=== PATIENT | female | born 1995 | race African-American/Black ===

== ENCOUNTER 2024-08-14 13:50 | Emergency (ER) | payer MEDICAID, SELFPAY ==
[2024-08-14 13:52] VITALS: BP 120/74; PULSE 92; RESP 18; TEMP 36.1; O2SAT 100
--- NOTE | 2024-08-14 14:11 | US_ITS ---
PROCEDURE: TRANSVAGINAL W/PREG US 08/14/2024 REASON FOR EXAM: , VAGINAL BLEED, patient currently taking oral abortive medication for , patient was approximately 9 weeks at time of medication induction. COMPARISON: None. TECHNIQUE: Transvaginal and transabdominal pelvic ultrasound. Color and spectral doppler analysis of the ovaries. FINDINGS: Measurements: Uterus: 13.6 x 5.9 x 6.1 cm Endometrial Thickness: 1.5 cm Right Ovary: Nonvisualized. Left Ovary: 3.1 x 2.4 x 2.2 cm Uterus: Anteverted. No visualized gestational sac or yolk sac. The cervical os appears closed. Endometrium: Heterogeneous, compatible with patient history. Right ovary: Nonvisualized. Left ovary: Normal size and echotexture. Other adnexal findings: None. No adnexal mass. Cul-de-sac: No free intraperitoneal fluid identified. No tenderness. DOPPLER: Color Doppler: Normal color flow doppler signal at both ovaries. Spectral Doppler: Normal arterial inflow and venous outflow signal at both ovaries. US/Transvaginal w/Preg US IMPRESSION: 1. Normal pelvic ultrasound without intrauterine gestational sac or yolk sac to suggest viable . 2. Mildly heterogeneous endometrium, compatible with reported history of medica l . Reading Location: [id number]
[2024-08-14 14:26] LABS: Absolute Lymphocyte Count 1.25 X10^3/uL (0.83-4.51); Absolute Neutrophil Count 4.1 X10^3/uL (2.0-7.7); Basophil# 0.02 X10^3/uL; Basophil% 0.3 % (0-1); Eosinophils% 6.5 % (0-5); Hematocrit 31.1 % (37-47); Lymphocyte # 1.25 X10^3/ul (0.83-4.51); Lymphocyte % 20.4 % (19-41); Mean Corp Hgb Conc 32.2 g/dL (32-36); Mean Corpuscular Hgb 28.7 pg (27.0-32.0); Mean Corpuscular Volume 89.1 fL (81-99); Mean Platelet Vol. 10.8 fl (6.2-12.0); Monocyte# 0.37 X10^3/uL; NRBC Flagged by Analyzer 0 % (0-5); Neutrophil # 4.06 X10^3/uL (2.7-7.7); Neutrophil % 66.3 % (47-70); Platelet Count 198 K/mm3 (150-450); RBC Distribution Width CV 14.5 % (11.6-14.6); RBC Distribution Width SD 45.2 fl (35.1-43.9); Red Blood Count 3.49 M/mm3 (4.2-5.4); White Blood Count 6.1 K/mm3 (4.4-11.0)
[2024-08-14] MEDS: Ondansetron 4 MG/2 ML Vial IV (14:37)
[2024-08-14] MEDS: 0.9% Normal Saline (1000mL) 1,000 ML 999 ML IV (14:37)
[2024-08-14] MEDS: Morphine 4 MG/ML Syringe IV (14:38)
[2024-08-14 14:43] LABS: Anion Gap 12 (5-15); BUN 8 mg/dL (4-19); BUN/Creat Ratio 12.6 RATIO (10-20); Calcium,Total 8.8 mg/dL (7.6-11.0); Chloride 100 mmol/L (98-108); EST Glomerular Filtration Rate 126 (>60); Glucose 101 mg/dL (70-99); Potassium 3.7 mmol/L (3.3-5.1); Sodium Level 133 mmol/L (133-145)
[2024-08-14 15:09] LABS: hCG Titer Quant., Serum 17903 mIU/mL (<9 non-preg)
[2024-08-14 15:51] VITALS: BP 126/77; PULSE 90; O2SAT 100
[2024-08-14 16:05] LABS: Mucous, Urine 0 SEEN /hpf (<or=2+)
--- NOTE | 2024-08-14 16:12 | EDS_ITS ---
HPI HPI - Female History of Present Illness Chief Complaint: Vag Bleeding Narrative Narrative: Chief complaint and HPI: Vaginal bleeding. 29-year-old female who is G5, P2, A2-1 miscarriage/1 elective presents for evaluation of vaginal bleeding. Patient states she recently moved here from [place]. Does not follow an ROOFING CONTRACTOR. States her last menstrual cycle was in May. Patient states she is about 9 weeks . Has not had an official ultrasound or followed with ROOFING CONTRACTOR. Patient states that she went on the Internet with a website called [employer] and ordered medication to have an elective . She took Mifepristone and 4 pills of Misoprostol approximately 24 hours ago. Patient states today she started to have vaginal bleeding in which she is passing multiple large clots. Associated symptom is abdominal cramping which feels like contractions, nausea, and lightheadedness. She denies any fever, chills, shortness of breath, chest pain, dysuria, diarrhea. Review of systems: See HPI Medications: As listed on the chart Allergies: As listed on the chart PFSH: Per chart Vital signs: As listed on the chart. Reviewed. Physical exam: Gen: A&O x3, uncomfortable secondary to pain Head: Normocephalic, atraumatic Eyes: No sclera icterus, conjunctiva clear ENT: Mildly dry mucous membranes CV: RRR, no murmurs, no peripheral edema Resp: Lungs CTA BL, no w/r/c GI: Abd soft, non-distended, non-tender to palpation although endorsing pelvic cramping, no r/r/g : No CVA tenderness Pelvic: Normal external genitalia. No lesions, masses, or rashes appreciated. Active vaginal bleeding with a large clot. Cervix unable to be visualized due to vaginal bleeding. Musc: Full ROM, no deformity Skin: Warm, dry Neuro: Alert, oriented, grossly intact, sensation intact Psych: Cooperative, appropriate mood and affect PFS PFS Medical History no medical history Home Medications ?Medication ?Instructions ?Recorded ?Last Taken ?Type cephalexin 500 mg capsule 500 mg PO BID 7 days #14 cap s 08/14/24 Unknown Rx Allergy/AdvReac Type Severity Reaction Status Date / Time iodine Allergy Mild Rash Verified 08/14/24 13:52 Penicillins Allergy Mild RASH Verified 08/14/24 13:52 Family History no significant family his Surgical History no surgical history Social History Smoking Status: Current every day smoker tobacco type: e-cigarettes EXAM Physical Exam Const Vital Signs: 08/14/24 13:52 08/14/24 15:51 08/14/24 16:53 Temperature 97 F L 97 F L Temperature Source Temporal Pulse Rate 92 90 86 Respiratory Rate 18 16 Blood Pressure 120/74 126/77 H 103/88 H Blood Pressure Mean 89 93 93 Pulse Ox 100 100 100 Oxygen Delivery Method Room Air Room Air 08/14/24 16:54 08/14/24 17:00 Temperature Temperature Source Pulse Rate 86 Respiratory Rate Blood Pressure 103/88 H 108/71 Blood Pressure Mean 93 83 Pulse Ox 100 Oxygen Delivery Method Room Air MDM MDM MDM Narrative Medical decision making narrative: 29-year-old female who is G5, P2, A2-1 miscarriage/1 elective presents for evaluation of vaginal bleeding. Patient reports she is 9 weeks and about pills over the Internet. She took Mifepristone and 4 pills of Misoprostol approximately 24 hours ago. Today started having vaginal bleeding in which she is passing multiple large clots. Endorsing contractions, nausea, lightheadedness. On physical exam patient has vaginal bleeding with a large clot. I am unable to visualize cervix. Differential diagnosis includes but is not limited to complete , incomplete , ruptured ectopic , UTI, anemia, dehydration. Laboratory workup including vaginal ultrasound. Given patient's symptoms as well as the reported amount of bleeding, ROOFING CONTRACTOR on-call Dr. Heredia was contacted early to be made aware of the patient incase exam worsens or changes. He agrees with the workup that was ordered. Vitals are stable here in the emergency department. Morphine, Zofran, NS bolus ordered. CBC without leukocytosis. Patient has anemia with hemoglobin at 10. States she has history of anemia however does not know her baseline. Platelets unremarkable. BMP unremarkable without SIL or significant electrolyte abnormality. Lactic acid unremarkable. Beta-hCG 17,903. Patient is A positive. Pelvic ultrasound pending at this time. On reevaluation, patient states her symptoms have improved. Her abdominal pain has completely resolved. Her vaginal bleeding has slowed down and no longer passing clots. She is able to ambulate to the bathroom without lightheadedness. Nausea is resolved. Pelvic ultrasound shows normal pelvic ultrasound without intrauterine gestational sac or yolk sac such as viable . Mild heterogeneous endometrium, compatible with reported history of medical . The cervical os appears closed. Dr. Heredia called me to obtain ultrasound results before I could call him in consult. He was updated of the findings. He was updated of the patient's clinical improvement. Plan is to discharge home and follow-up outpatient in their office. Repeat beta-hCG in 3 days. UA is positive for UTI. Urine culture sent. Rocephin ordered. Patient will be placed on a 7-day course of Keflex. This is easily tolerable. She does have a rash to penicillins however cross reactivity is low. She was made aware of this and confirmed understanding. She accepted the risks of hives. Patient was updated that she needs to follow-up with ROOFING CONTRACTOR. She is given an order to have her beta hCG repeated in 3 days. She was educated on strict return precautions such as recurrent bleeding, cramping, lightheadedness. She confirmed understanding. Currently asymptomatic. Minimal vaginal bleeding. Vital stable. Patient will be discharged home. Impression: 1. Complete , elective via medication online 2. Chronic anemia 3. UTI Lab Data Labs: Laboratory Results - last 24 hr 08/14/24 08/14/24 08/14/24 14:15 15:50 15:55 WBC 6.1 RBC 3.49 L Hgb 10.0 L Hct 31.1 L MCV 89.1 MCH 28.7 MCHC 32.2 RDW Std Deviation 45.2 H RDW Coeff of Rayna 14.5 Plt Count 198 MPV 10.8 Immature Gran % (Auto) 0.500 Neut % (Auto) 66.3 Lymph % (Auto) 20.4 [place] % (Auto) 6.0 Eos % (Auto) 6.5 H Baso % (Auto) 0.3 Absolute Neuts (auto) 4.1 Absolute Lymphs (auto) 1.25 Nucleated RBC % 0 Sodium 133 Potassium 3.7 Chloride 100 Carbon Dioxide 22.0 Anion Gap 12 BUN 8 Creatinine 0.60 L Est GFR (MDRD) Non-Af 126 BUN/Creatinine Ratio 12.6 Glucose 101 H Lactic Acid 1.1 Calcium 8.8 HCG, Quant 63947 H Serum , Qual Cancelled Urine Color Yellow Urine Clarity Sl. Cloudy Urine pH 6.0 Ur Specific [place] 1.015 Urine Protein 30 H Urine Glucose (UA) Normal Urine Ketones Negative Urine Occult Blood 250 H Urine Nitrite Positive H Urine Bilirubin Negative Urine Urobilinogen Normal Ur Leukocyte Esterase 25 H Urine RBC 10-25 SEEN Urine WBC 0-5 SEEN Ur Squamous Epith Cells 0-5 SEEN Urine Bacteria 2+ Urine Mucus 0 SEEN Blood Type A POSITIVE Radiography Diagnostic Testing: Clinical Impression(s) from Imaging Studies Obstetrics Ultrasound 08/14/24 14:11 IMPRESSION: 1. Normal pelvic ultrasound without intrauterine gestational sac or yolk sac to suggest viable . 2. Mildly heterogeneous endometrium, compatible with reported history of medical . Reading Location: [facility] Discharge Plan Triage Chief Complaint: Vag Bleeding ED Provider: Adalberto Limon Dx/Rx/DC Orders Clinical Impression: Complete Instructions: Understanding Miscarriage: Emotions, Understanding Miscarriage: Recovery, Miscarriage Dc Prescriptions: New cephalexin 500 mg capsule 500 mg PO BID 7 Days Qty: 14 0RF Other Ambulatory Orders: hCG Titer Quant., Serum (Routine) Timeframe: 3 Days Facility: [facility] - Location: Laboratory Ordered By: Dr. Adalberto Limon Primary Care Provider: Care Physician,No Primary Referrals: Sarmad Heredia MD [Med Staff - Active Staff] - As soon as possible Eren Granado MD [Med Staff - Active Staff] - 3-5 Days Activity Restrictions/Additional Instructions: Follow-up with ROOFING [employer]OR. Call the number tomorrow to make an appointment to be seen. Follow-up with PCP provided above if you do not have a PCP. Return back to the ED if symptoms change or worsen. Take all of your antibiotics. You need to have your beta-hCG repeated in 3 days, prescription prescribed. Print Language: Kenyan Disposition Disposition: Home, Self Care
[2024-08-14 16:14] LABS: Color, Urine Yellow (Yellow); Glucose, Dipstick Normal (Normal); Ketone-Dipstick Negative (Negative); Leukocyte Esterase-Dipstick 25 /ul (Negative); Nitrite-Dipstick Positive (Negative); Occult Blood-Urine 250 /ul (Negative); Protein-Dipstick 30 mg/dl (Negative); Specific Gravity, Urine 1.015 (1.002-1.030); Urine Bilirubin Dipstick Negative (Negative); Urine Clarity Sl. Cloudy (Clear); Urine Urobilinogen Normal (Normal)
[2024-08-14 16:35] LABS: Red Blood Cells-Urine 10-25 SEEN /hpf (0-5); White Blood Cells 0-5 SEEN /hpf (0-5)
[2024-08-14 16:36] LABS: Bacteria 2+ /hpf (None Seen); Squamous Epithelial Cells - UA 0-5 SEEN /hpf (5-10)
[2024-08-14 16:47] LABS: Lactic Acid 1.1 mmol/L (0.0-2.0)
[2024-08-14 16:53] VITALS: BP 103/88; PULSE 86; RESP 16; TEMP 36.1; O2SAT 100
[2024-08-14 16:54] VITALS: BP 103/88; PULSE 86; O2SAT 100
[2024-08-14 17:00] VITALS: BP 108/71
[2024-08-14] MEDS: Ceftriaxone 1 GM/50 ML BAG IV (17:09)
== END 2024-08-14 17:47 | disposition home or self-care (01) ==
PROVIDERS: Emergency Provider Surgery; Visit Provider Surgery
DX: O03.9 Complete or unspecified spontaneous abortion without complication (principal); O99.011 Anemia complicating pregnancy, first trimester; O23.41 Unspecified infection of urinary tract in pregnancy, first trimester; Z3A.09 9 weeks gestation of pregnancy
CPT/HCPCS: 76817; 80048; 81001; 83605; 84702; 85025; 86900; 86901; 87077; 87086; 87088; 87186; 96361; 96365; 96375; 99282; A4216; J2405

== ENCOUNTER 2024-12-04 15:19 | Emergency (ER) | payer MEDICAID, SELFPAY ==
[2024-12-04 15:21] VITALS: BP 123/94; PULSE 91; RESP 18; TEMP 35.6; O2SAT 99; BMI 41.8
[2024-12-04 16:00] VITALS: BP 123/80; PULSE 80; RESP 16; TEMP 36.7; O2SAT 100
--- NOTE | 2024-12-04 23:24 | EX.ED.DYSGE1 ---
HPI History of Present Illness Chief Complaint: Wound Check Narrative Narrative: Patient is a 29-year-old female presenting to the emergency department for a bump on my head. Patient has no significant past medical history. She states that she has had this before when her dawson have been too tight. She states that she has noticed that over the past few days and it is painful to the touch. She denies any fevers, chills, nausea, vomiting, feels fine otherwise. Denies any drainage from the area. Denies any history of immunocompromise state. Denies any trauma to the area. Denies headache, neck pain. PFSH PFS Medical History no medical history Home Medications ?Medication ?Instructions ?Recorded ?Last Taken ?Type cephalexin 500 mg capsule 500 mg PO BID 7 days #14 caps 08/14/24 Unknown Rx dulaglutide 0.75 mg/0.5 mL 0.75 mg subcut QWEEK 12/04/24 Unknown History subcutaneous pen injector (Trulicity) ferrous sulfate 325 mg (65 mg 325 mg PO BID 12/04/24 Unknown History iron) tablet (FeroSul) Allergy/AdvReac Type Severity Reaction Status Date / Time iodine Allergy Mild Rash Verified 12/04/24 15:20 Penicillins Allergy Mild RASH Verified 12/04/24 15:20 Social History Smoking Status: Current every day smoker tobacco type: e-cigarettes ROS ROS ED ROS Narrative See HPI EXAM Physical Exam Narrative Exam Narrative: Vital signs: Reviewed General: Alert and oriented x 3. No acute distress HEENT: Head is normocephalic and atraumatic. There is a small 1 cm area of swelling to the right sided crown of the head. There is no erythema, warmth, drainage, fluctuance of the area. It is directly underneath the braid that is very tight. Sinuses nontender, pupils equal round and reactive. Nares are patent. Oropharynx and throat exams normal. Neck: Supple without lymphadenopathy nontender Cardiovascular: Regular rate and rhythm, no murmurs. No rubs or gallops. Normal S1 and S2 Respiratory: Clear to auscultation bilaterally. No wheezes, rales, rhonchi Abdominal: Soft and nontender. Normal bowel sounds. No guarding or rebound. Nonsurgical abdomen Extremities: No tenderness. No bruising. Normal range of motion. Normal sensation. Skin: No rash or redness. Neurological: Cranial nerves II through XII are grossly intact. Normal strength and sensation. Normal cerebellar function The rest of the physical exam is unremarkable Const Vital Signs: 12/04/24 15:21 12/04/24 16:00 Temperature 96.1 F L 98.0 F Temperature Source Temporal Pulse Rate 91 80 Respiratory Rate 18 16 Blood Pressure 123/94 H 123/80 H Blood Pressure Mean 103 94 Pulse Ox 99 100 Oxygen Delivery Method Room Air MDM MDM MDM Narrative Medical decision making narrative: Patient is a 29-year-old female presenting to the emergency department for a bump on my head. Patient was seen and examined. Vitals are stable. Patient resting bed comfortably no acute distress. Patient had no trauma to the head, I do not think this is a cephalohematoma. There is no fluctuance, warmth, drainage or erythema consistent with abscess. Do think this is irritation from her braid being too tight. She is neurologically intact. No headaches, no neck pain, no fevers. Recommended that she watch the area and ice it to help with pain and swelling. Instructed to take Motrin. Patient discharged from the Emergency Department. I do not feel that the patient's evaluation reveals any acute reason for admission at this time. I instructed them to either follow-up with their primary care physician or promptly return to the Emergency Department for reevaluation should symptoms worsen or new symptoms develop. I explained what symptoms would indicate the need to return to the emergency department. Shared decision making was used. The patient voiced understanding of the treatment plan and is agreeable with it. Clinical impression Wound check History & Record Review Discussion w/independent historian: Patient Discharge Plan Triage Chief Complaint: Wound Check ED Provider: Mary Lou Aldridge Dx/Rx/DC Orders Clinical Impression: Visit for wound check Instructions: ED Wound Check (No Infection) Prescriptions: No Action ferrous sulfate [FeroSul] 325 mg (65 mg iron) tablet 325 mg PO BID Trulicity 0.75 mg/0.5 mL pen injector 0.75 mg subcut QWEEK cephalexin 500 mg capsule 500 mg PO BID 7 Days Qty: 14 0RF Primary Care Provider: Care Physician,No Primary Referrals: Karli Davis MD [Med Staff - [employer] Operator] - 2 Days Care Physician,No Primary [Primary Care Provider] - Activity Restrictions/Additional Instructions: Please apply ice pack to your head and take motrin to help with the pain. Please follow-up with your primary care doctor if you not have 1 you can follow-up with one below as soon as possible. If you develop any redness, warmth or drainage from the area you need to return to the emergency department or see your primary care doctor for evaluation. Print Language: Norwegian Disposition Disposition: Home, Self Care Discharge Date/Time: 12/04/24 16:03
== END 2024-12-04 16:03 | disposition home or self-care (01) ==
PROVIDERS: Emergency Provider Student in an Organized Health Care Education/Training Program; Visit Provider Student in an Organized Health Care Education/Training Program
DX: Z51.89 Encounter for other specified aftercare (principal); F17.290 Nicotine dependence, other tobacco product, uncomplicated
CPT/HCPCS: 99282

== ENCOUNTER 2024-12-05 21:41 | Emergency (ER) | payer MEDICAID, SELFPAY ==
[2024-12-05 21:41] VITALS: BP 131/101; PULSE 105; RESP 16; TEMP 36.8; O2SAT 98
[2024-12-05 21:47] VITALS: BMI 42.3
[2024-12-05 22:09] VITALS: BP 129/88; PULSE 90; RESP 18; TEMP 36.6; O2SAT 100
--- NOTE | 2024-12-05 22:54 | EDS_ITS ---
HPI History of Present Illness Chief Complaint: Abscess Narrative Narrative: Patient is a 29-year-old female presenting to the emergency department for a wound check. Patient has no significant past medical history. She states that she was here yesterday for a wound check. She noticed that it was draining this morning which is why she is here. She feels fine otherwise. Denies any fever or chills. Denies nausea or vomiting. Denies headache. Denies history of this happening before. PFSH PFSH Home Medications ?Medication ?Instructions ?Recorded ?Last Taken ?Type dulaglutide 0.75 mg/0.5 mL 0.75 mg subcut QWEEK Unknown History subcutaneous pen injector (Trulicity) ferrous sulfate 325 mg (65 mg 325 mg PO BID 12/04/24 U nknown History iron) tablet (FeroSul) Allergy/AdvReac Type Severity Reaction Status Date / Time iodine Allergy Mild Rash Verified 12/05/24 21:42 Penicillins Allergy Mild RASH Verified 12/05/24 21:42 Social History Smoking Status: Current every day smoker tobacco type: e-cigarettes ROS ROS ED ROS Narrative see HPI EXAM Physical Exam Narrative Exam Narrative: Vital signs: Reviewed General: Alert and orientedx3. No acute distress HEENT: Head is normocephalic. Small 2 cm draining area on the right parietal portion of the scalp. The drainage is purulent. No warmth, erythema, crepitus. Sinuses nontender, pupils equal round and reactive. Nares are patent. Oropharynx and throat exams normal. Neck: Supple without lymphadenopathy nontender Cardiovascular: Regular rate and rhythm, no murmurs. No rubs or gallops. Normal S1 and S2 Respiratory: Clear to auscultation bilaterally. No wheezes, rales, rhonchi Abdominal: Soft and nontender. Normal bowel sounds. No guarding or rebound. Nonsurgical abdomen Extremities: No tenderness. No bruising. Normal range of motion. Normal sensation. The rest of the physical exam is unremarkable Const Vital Signs: 12/05/24 21:41 12/05/24 22:09 Temperature 98.3 F 98 F Temperature Source Oral Pulse Rate 105 H 90 Respiratory Rate 16 18 Blood Pressure 131/101 H 129/88 H Blood Pressure Mean 111 101 Pulse Ox 98 100 Oxygen Delivery Method Room Air MDM MDM MDM Narrative Medical decision making narrative: Patient is a 29-year-old female presenting to the emergency department for a wound check. Patient was seen and examined. Vitals are stable. Patient resting in bed comfortably no acute distress. The small abscess is already actively draining. I did apply pressure to the edges of the abscess to express more purulent fluid. Pressure was applied until there was a small amount of bloody discharge with no purulence. I explained to the patient that the area is already draining there is no indication for opening of the wound further. There is no signs of overlying cellulitis, I do not think she needs antibiotics at this time. She was instructed to watch the area and if she develops any signs of infection including redness, warmth, fevers or chills she should return to the ED immediately to be reevaluated and determine possible need for antibiotics at that time. Instructed to try to continue expressing drainage from the wound when she takes hot showers. Patient agreeable to plan. Patient discharged from the Emergency Department. I do not feel that the patient's evaluation reveals any acute reason for admission at this time. I instructed them to either follow-up with their primary care physician or promptly return to the Emergency Department for reevaluation should symptoms worsen or new symptoms develop. I explained what symptoms would indicate the need to return to the emergency department. Shared decision making was used. The patient voiced understanding of the treatment plan and is agreeable with it. Clinical impression Abscess History & Record Review Discussion w/independent historian: Patient Additional record(s) reviewed:: Prior ED visit Discharge Plan Triage Chief Complaint: Abscess ED Provider: Mary Lou Aldridge Dx/Rx/DC Orders Clinical Impression: Abscess Instructions: ED Abscess Incision And Drainage Prescriptions: No Action ferrous sulfate [FeroSul] 325 mg (65 mg iron) tablet 325 mg PO BID Trulicity 0.75 mg/0.5 mL pen injector 0.75 mg subcut QWEEK Primary Care Provider: Care Physician,No Primary Referrals: Karli Davis MD [Med Staff - Turning Lathe Tender] - 3-5 Days Care Physician,No Primary [Primary Care Provider] - Activity Restrictions/Additional Instructions: When you take a hot shower you compress on the area to continue having it drain. Follow-up with the primary care doctor below and return to the ED with any new or worsening symptoms including worsening pain to the area, redness, warmth, fevers or chills. Print Language: [place] Islander Disposition Disposition: Home, Self Care Discharge Date/Time: 12/05/24 22:13
== END 2024-12-05 22:13 | disposition home or self-care (01) ==
LOC: ED 22:13
PROVIDERS: Emergency Provider Student in an Organized Health Care Education/Training Program; Visit Provider Student in an Organized Health Care Education/Training Program
DX: L02.811 Cutaneous abscess of head [any part, except face] (principal); F17.290 Nicotine dependence, other tobacco product, uncomplicated
CPT/HCPCS: 99282

== ENCOUNTER 2025-02-26 22:45 | Emergency (ER) | payer MEDICAID, SELFPAY ==
[2025-02-26 22:46] VITALS: BP 127/82; PULSE 102; RESP 18; TEMP 36.7; O2SAT 99; BMI 43.6
[2025-02-26 22:50] VITALS: BP 127/82; PULSE 102; RESP 18; TEMP 36.7; O2SAT 99
--- NOTE | 2025-02-26 23:06 | EX.ED.DYSGE1 ---
HPI History of Present Illness Chief Complaint: Cold Sx Informant: patient Narrative Narrative: Patient is a 29-year-old female who reports no significant past medical history. She states for the past 2 to 3 days she has had nasal congestion cough and sinus pressure/headache. She denies any known sick contacts. She states there is been no fevers or chills and she denies any concern for . She states she has had sinus infections in the past and is concerned she may developing 1 at this time and therefore comes in for evaluation [facility] Home Medications ?Medication ?Instructions ?Recorded ?Last Taken ?Type dulaglutide 0.75 mg/0.5 mL 0.75 mg subcut QWEEK 12/04/24 Unknown History subcutaneous pen injector (Trulicity) ferrous sulfate 325 mg (65 mg 325 mg PO BID 12/04/24 Unknown History iron) tablet (FeroSul) azelastine 137 mcg (0.1 %) nasal 2 spray intranasal BID #30 mL 02/26/25 Unknown Rx spray doxycycline monohydrate 100 mg 100 mg PO BID #20 CAPSULES 02/26/25 Unknown Rx capsule prednisone 20 mg tablet 40 mg (2 x 20 mg) PO DAILY 5 days 02/26/25 Unknown Rx #10 tabs Allergy/AdvReac Type Severity Reaction Status Date / Time iodine Allergy Mild Rash Verified 02/26/25 22:48 Penicillins Allergy Mild RASH Verified 02/26/25 22:48 Social History Smoking Status: Former smoker ROS ROS ED Constitutional Constitutional ED: Denies chills or fever(s) Eyes Eyes: Denies blurry vision or change in vision ENT ENT ED: Reports rhinorrhea and sore throat; Denies ear pain Cardiovascular Cardiovascular: Denies chest pain Respiratory/Chest Respiratory/Chest: Reports cough; Denies dyspnea Gastrointestinal Gastrointestinal: Denies abdominal pain, diarrhea, nausea or vomiting Genitourinary Genitourinary ED: Denies dysuria Musculoskeletal Musculoskeletal: Denies myalgias Integumentary Denies rash Neurologic Neurologic: Reports headache(s) Hematologic/Lymphatic Hematologic/Lymphatic: Denies easy bleeding or easy bruising EXAM Physical Exam Const Vital Signs: 02/26/25 22:46 02/26/25 22:50 02/26/25 23:16 Temperature 98.1 F 98.1 F Temperature Source Oral Oral Pulse Rate 102 H 102 H 98 Respiratory Rate 18 18 16 Respiratory Effort Respiratory Pattern Blood Pressure 127/82 H 127/82 H 117/81 H Blood Pressure Mean 97 97 93 Pulse Ox 99 99 100 Oxygen Delivery Method Room Air Room Air 02/26/25 23:18 02/26/25 23:20 Temperature 98.1 F Temperature Source Pulse Rate 98 Respiratory Rate 16 Respiratory Effort Normal Respiratory Pattern Normal Blood Pressure 117/81 H Blood Pressure Mean 93 Pulse Ox 100 Oxygen Delivery Method Positive well nourished and well developed General Appearance ED: well developed; Negative for pallor HEENT HEENT Narrative: Normocephalic atraumatic Nasal mucosa is hyperemic and boggy with enlarged inferior nasal turbinate Bilateral TMs are slightly retracted without secondary findings to suggest infection Posterior pharynx exam displays cobblestoning consistent with sinus drainage without airway edema or compromise There is only minimal pain with palpation of the frontal ethmoid and maxillary sinuses Transillumination of the maxillary sinuses is normal Eyes PERRL and EOMs intact bilaterally General Eye ED: Negative for scleral icterus Neck supple and no JVD Neck Narrative: No nuchal rigidity or meningeal sign Positive anterior cervical lymphadenopathy noted Resp normal respiratory effort and clear to auscultation bilaterally Cardio regular rate and regular rhythm Extremity normal to inspection Neuro oriented x3, CN's II-XII intact bilaterally and no sensory deficits noted Sensorium / Orientation: alert Motor Exam: strength 5/5 throughout Psych mental status grossly normal Skin no rashes or lesions noted General Skin Exam: Negative for jaundice or pallor MDM MDM MDM Narrative Medical decision making narrative: Patient arrived to the ER with stable vitals and in no acute respiratory distress. Symptoms are most consistent with viral infection such as COVID influenza or RSV. We did discuss obtaining a viral swab to check for this but as she is not showing signs of respiratory distress or systemic infection/sepsis it would not change treatment options and therefore we elected not to perform the viral swab. Lungs are also clear and concern for pneumonia is low so we elected not to perform a chest x-ray. As the patient has only had symptoms for 2 to 3 days and transillumination of the maxillary sinuses is normal my concern that this is bacterial sinusitis is low and her pain is most likely related to sinus inflammation and viral URI. Therefore she was advised to take steroid and nasal spray to help control symptoms. However as she has concern for developing bacterial infection I will give her a [id number] prescription of doxycycline. However at this time with stable vitals and no signs of systemic infection or respiratory distress there is no need for further intervention and she is otherwise safe for discharge History & Record Review Discussion w/independent historian: Patient Discharge Plan Triage Chief Complaint: Cold Sx ED Provider: Leoncio Suarez Dx/Rx/DC Orders Clinical Impression: Upper respiratory tract infection Instructions: ED Viral Syndrome (Adult) Prescriptions: New prednisone 20 mg tablet 40 mg PO DAILY 5 Days Qty: 10 0RF azelastine 137 mcg (0.1 %) spray,non-aerosol 2 spray intranasal BID Qty: 30 0RF Rx Instructions: administer into each nostril doxycycline monohydrate 100 mg capsule 100 mg PO BID Qty: 20 0RF No Action ferrous sulfate [FeroSul] 325 mg (65 mg iron) tablet 325 mg PO BID Trulicity 0.75 mg/0.5 mL pen injector 0.75 mg subcut QWEEK Stand Alone Forms: ED Work / School Excuse Primary Care Provider: Care Physician,No Primary Referrals: Care Physician,No Primary [Primary Care Provider, Medical] Activity Restrictions/Additional Instructions: Your history and exam is most consistent with a viral upper respiratory tract infection. This will cause symptoms such as headache sinus pressure congestion and sore throat as well as fatigue. It would typically last 18 to 21 days. Use the steroid nasal spray for the next 5 to 7 days to help improve symptoms. If there is no improvement after this time then you may fill the doxycycline/antibiotic that was given to you in the ER and take this to help with potential developing bacterial sinusitis. You can continue Tylenol Motrin and [id number] cough syrups as needed as well. Return to the ER should you have any further concerns Print Language: Sami Disposition Disposition: Home, Self Care Discharge Date/Time: 02/26/25 23:20
--- OUTSIDE RECORDS SUMMARY | 2025-02-26 23:12 | XMS RPT_ITS | CCD ---
Author Organization [facility] Care Team Providers Care Global Compensation Director Name Role Phone Care Physician, No Primary Primary Care Provider Unavailable Dr. Adalberto Limon DO Emergency Provider Unavailable Primary Care Provider UnavailSNEHAL uLndberg Attending Unavailable SNEHAL MAC Referring Unavailable RAI GONSALEZ Attending Unavailable Dr. Adalberto Limon DO Attending Provider Oly SCOTT, Dr. Barreto Emergency Provider Unavailab le Care Physician, No Primary Primary Care Unava ilable Mary Lou Aldridge Attending Unavailable Mary Lou Aldridge Attending Unavailable Care Physician, No Primary Primary Care Unava ilable Adalberto Limon Attending Unavailabl e Care Physician, No Primary Primary Care Unava ilable Allergies Allergy Classification Reported Allergen(s) Allergy Type Date of Onset Reaction(s) Facility (6 sources) Iodine; Translations: [IODINE] Drug Allergy 3 [facility] (4 sources) Penicillins; Translations: [PENICILLINS] Allergy to substance 1 [facility] (2 sources) Penicillins Drug Allergy 1 [facility] (3 sources) Shellfish; Translations: [SHELLFISH CONTAINING PRODUCTS] Drug Allergy 3 Hives, Itching [facility] (1 source) Iodine Drug Allergy 5 [facility] (1 source) Penicillins Drug allergy (disorder) 5 [facility] Medications Current Medications Medication Drug Class(es) Dates Sig (Normalized) Sig (Original) 0.5 ml dulaglutide 3 mg/ml auto-injector (4 sources) GLP-1 Receptor Agonist Start: 12-22-2024 End: 01-21-2025 dulaglutide (TRULICITY) 1.5 mg/0.5 mL pen injector Inject 1.5 mg subcutaneously one time a week. Patient should start on December 22, 2024. 2 mL 12/22/2024 01/21/2025 Active Start: 11-24-2024 End: 12-24-2024 Dulaglutide (Dulaglutide 0.7 5 Mg/0.5 Ml Subcutaneous Pen Injector) 0.75 mg/0.5 mL pen injector Active 0.75 mg SC EVERY WEEK December 04, 2024 12:00am ferrous sulfate 325 mg oral tablet (1 source) Start: 10-23-2024 take 1 tablet by mouth twice daily ferrous sulfate 325 mg (65 mg iron) tablet Take 1 tablet by mouth two times a day. 180 tablet 1 10/23/2024 Active Ferrous Sulfate (Ferrous Sulfate 325 Mg (65 Mg Iron) Tablet) 325 mg (65 mg iron) tablet (2 sources) Start: 12-04-2024 Ferrous Sulfat e (Ferrous Sulfate 325 Mg (65 Mg Iron) Tablet) 325 mg (65 mg iron) tablet Active 325 mg PO TWICE A DAY December 04, 2024 12:00am norethindrone acetate 5 mg oral tablet (1 source) Start: 10-23-2024 norethindrone (AYGESTIN) 5 mg tablet Indications: abnormal uterine bleeding due to hormonal imbalance Take 1 tablet TID until bleeding stops for 24 hours, then 1 tablet BID x 3 days, then 1 tablet daily x 3 days. 35 tablet 10/23/2024 Active Completed/Discontinued Medications Medication Drug Class(es) Dates Sig (Normalized) Sig (Original) cephalexin 500 mg oral capsule (3 sources) Cephalosporin Antibacterial Start: 08-14-2024 End: 12-05-2024 take 1 capsule by mouth twice daily Cephalexin 500 mg capsule Discontinued 500 mg PO TWICE A DAY 14 7 0 August 14, 2024 12:00am December 05, 2024 9:47pm Problems Active Problems Problem Classification Problem Date Documented Date Episodic/Chronic Immunizations and screening for infectious disease (4 sources) Patient encounter status; Translations: [Encounter for screening for human papillomavirus (HPV)] Onset: 10-20-2024 10-20-2024 Episodic Other aftercare (2 sources) Wound finding; Translations: [Encounter for other specified aftercare] 12-04-2024 Episodic Other aftercare (1 source) Encounter for other specified aftercare; Translations: [Encounter for other specified aftercare] Onset: 12-07-2024 Episodic Other connective tissue disease (2 sources) Suspected respiratory disease; Translations: [Other symptoms and signs involving the nervous system] Onset: 11-24-2024 11-24-2024 Episodic Other connective tissue disease (1 source) Other symptoms and signs involving the nervous system; Translations: [Suspected sleep apnea] Onset: 11-24-2024 Episodic Other female genital disorders (2 sources) Abnormal uterine bleeding; Translations: [Abnormal uterine and vaginal bleeding, unspecified] 10-20-2024 Chronic Other female genital disorders (1 source) Abnormal uterine and vaginal bleeding, unspecified; Translations: [Abnormal uterine bleeding (AUB)] Onset: 10-20-2024 Chronic Other lower respiratory disease (3 sources) Snoring; Translations: [Snoring] Onset: 11-24-2024 11-24-2024 Episodic Other lower respiratory disease (1 source) Snoring; Translations: [Snoring] Onset: 11-24-2024 Episodic Other nutritional; endocrine; and metabolic disorders (1 source) Severe obesity; Translations: [Class 3 severe obesity with body mass index (BMI) of 40.0 to 44.9 in adult, unspecified obesity type, unspecified whether serious comorbidity present (HCC)] 11-24-2024 Chronic Other nutritional; endocrine; and metabolic disorders (1 source) Obesity; Translations: [Obesity, unspecified] Onset: 11-24-2024 11-24-2024 Chronic Other nutritional; endocrine; and metabolic disorders (1 source) Unintentional weight gain; Translations: [Abnormal weight gain] 10-20-2024 Episodic Other nutritional; endocrine; and metabolic disorders (3 sources) Abnormal weight gain; Translations: [Abnormal weight gain] Onset: 11-24-2024 11-24-2024 Episodic Other nutritional; endocrine; and metabolic disorders (2 sources) Polyphagia; Translations: [Polyphagia] Onset: 11-24-2024 11-24-2024 Episodic Other nutritional; endocrine; and metabolic disorders (1 source) Abnormal weight gain; Translations: [Unintended weight gain] Onset: 10-20-2024 Episodic Other screening for suspected conditions (not mental disorders or infectious disease) (3 sources) Cancer cervix screening status; Translations: [Encounter for screening for malignant neoplasm of cervix] Onset: 10-20-2024 10-20-2024 Episodic Skin and subcutaneous tissue infections (2 sources) Abscess; Translations: [Cutaneous abscess, unspecified] Onset: 12-11-2024 12-05-2024 Episodic Past or Other Problems Problem Classification Problem Date Documented Da te Episodic/Chronic Spontaneous (4 sources) with abortive outcome; Translations: [Complete or unspecified spontaneous without complication] Onset: 08-21-2024 08-14-2024 Episodic Unclassified (1 source) Binge eating 11-24-2024 Results Test Name Value Interpretation Reference Range Facility Emergency Department Summary on 12-05-2024 Emergency Department Summary [facility] Medical Records Department [address] [place] [address] Emergency Department Summary 12/05/24 MR#: [id number] Acct: [id number] Name: KAYLEE RICHARDSON Rep #: [id number] : 1995 29 From: Mary Lou Aldridge MD PCP: Care Physician,No Primary Status:DEP ER Location: ED HPI History of Present Illness Chief Complaint: Abscess Narrative Narrative: Patient is a 29-year-old female presenting to the emergency department for a wound check. Patient has no significant past medical history. She states that she was here yesterday for a wound check. She noticed that it was draining this morning which is why she is here. She feels fine otherwise. Denies any fever or chills. Denies nausea or vomiting. Denies headache. Denies history of this happening before. PFSH [facility] Home Medications ???Medication ???Instructions ???Recorded ???Last Taken ???Type dulaglutide 0.75 mg/0.5 mL 0.75 mg subcut QWEEK 12/04/24 Unkn own History subcutaneous pen injector (Trulicity) ferrous sulfate 325 mg (65 mg 325 mg PO BID 12/04/24 Unknown His tory iron) tablet (FeroSul) Allergy/AdvReac Type Severity Reaction Status Date / Time iodine Allergy Mild Rash Verified 12/05/24 21:42 Penicillins Allergy Mild RASH Verified 12/05/24 21:42 Social History Smoking Status: Current every day smoker tobacco type: e-cigarettes ROS ROS ED ROS Narrative see HPI EXAM Physical Exam Narrative Exam Narrative: Vital signs: Reviewed General: Alert and orientedx3. No acute distress HEENT: Head is normocephalic. Small 2 cm draining area on the right parietal portion of the scalp. The drainage is purulent. No warmth, erythema, crepitus. Sinuses nontender, pupils equal round and reactive. Nares are patent. Oropharynx and throat exams normal. Neck: Supple without lymphadenopathy nontender Cardiovascular: Regular rate and rhythm, no murmurs. No rubs or gallops. Normal S1 and S2 Respiratory: Clear to auscultation bilaterally. No wheezes, rales, rhonchi Abdominal: Soft and nontender. Normal bowel sounds. No guarding or rebound. Nonsurgical abdomen Extremities: No tenderness. No bruising. Normal range of motion. Normal sensation. The rest of the physical exam is unremarkable Const Vital Signs: 12/05/24 21:41 12/05/24 22:09 Temperature 98.3 F 98 F Temperature Source Oral Pulse Rate 105 H 90 Respiratory Rate 16 18 Blood Pressure 131/101 H 129/88 H Blood Pressure Mean 111 101 Pulse Ox 98 100 Oxygen Delivery Method Room Air MDM MDM MDM Narrative Medical decision making narrative: Patient is a 29-year-old female presenting to the emergency department for a wound check. Patient was seen and examined. Vitals are stable. Patient resting in bed comfortably no acute distress. The small abscess is already actively draining. I did apply pressure to the edges of the abscess to express more purulent fluid. Pressure was applied until there was a small amount of bloody discharge with no purulence. I explained to the patient that the area is already draining there is no indication for opening of the wound further. There is no signs of overlying cellulitis, I do not think she needs antibiotics at this time. She was instructed to watch the area and if she develops any signs of infection including redness, warmth, fevers or chills she should return to the ED immediately to be reevaluated and determine possible need for antibiotics at that time. Instructed to try to continue expressing drainage from the wound when she takes hot showers. Patient agreeable to plan. Patient discharged from the Emergency Department. I do not feel that the patient's evaluation reveals any acute reason for admission at this time. I instructed them to either follow- up with their primary care physician or promptly return to the Emergency Department for reevaluation should symptoms worsen or new symptoms develop. I explained what symptoms would indicate the need to return to the emergency department. Shared decision making was used. The patient voiced understanding of the treatment plan and is agreeable with it. Clinical impression Abscess History Record Review Discussion w/independent historian: Patient Additional record(s) reviewed:: Prior ED visit Discharge Plan Triage Chief Complaint: Abscess ED Provider: Mary Lou Aldridge Dx/Rx/DC Orders Clinical Impression: Abscess Instructions: ED Abscess Incision And Drainage Prescriptions: No Action ferrous sulfate [FeroSul] 325 mg (65 mg iron) tablet 325 mg PO BID Trulicity 0.75 mg/0.5 mL pen injector 0.75 mg subcut QWEEK Primary Care Provider: Ferdinand Physician,No Primary Referrals: Karli Davis MD [[facility] [employer] [facility]] - 3-5 Days Care Physician,N (more content not included)... Normal [facility] Emergency Department Summary on 12-04-2024 Emergency Department Summary [facility] Medical Records Department [address] [place] [address] Emergency Department Summary 12/04/24 MR#: [id number] Acct: [id number] Name: KAYLEE RICHARDSON Rep #: [id number] : 1995 29 From: Mary Lou Alrdidge MD PCP: Ferdinand Physician,No Primary Status:DEP ER Location: ED HPI History of Present Illness Chief Complaint: Wound Check Narrative Narrative: Patient is a 29-year-old female presenting to the emergency department for a bump on my head. Patient has no significant past medical history. She states that she has had this before when her dawson have been too tight. She states that she has noticed that over the past few days and it is painful to the touch. She denies any fevers, chills, nausea, vomiting, feels fine otherwise. Denies any drainage from the area. Denies any history of immunocompromise state. Denies any trauma to the area. Denies headache, neck pain. PFSH PFSH Medical History no medical history Home Medications ???Medication ???Instructions ???Recorded ???Last Taken ???Type cephalexin 500 mg capsule 500 mg PO BID 7 days #14 caps 07/21 09/13 Unknown Rx dulaglutide 0.75 mg/0.5 mL 0.75 mg subcut QWEEK 12/04/24 Unkn own History subcutaneous pen injector (Trulicity) ferrous sulfate 325 mg (65 mg 325 mg PO BID 12/04/24 Unknown His tory iron) tablet (FeroSul) Allergy/AdvReac Type Severity Reaction Status Date / Time iodine Allergy Mild Rash Verified 12/04/24 15:20 Penicillins Allergy Mild RASH Verified 12/04/24 15:20 Social History Smoking Status: Current every day smoker tobacco type: e-cigarettes ROS ROS ED ROS Narrative See HPI EXAM Physical Exam Narrative Exam Narrative: Vital signs: Reviewed General: Alert and oriented x 3. No acute distress HEENT: Head is normocephalic and atraumatic. There is a small 1 cm area of swelling to the right sided crown of the head. There is no erythema, warmth, drainage, fluctuance of the area. It is directly underneath the braid that is very tight. Sinuses nontender, pupils equal round and reactive. Nares are patent. Oropharynx and throat exams normal. Neck: Supple without lymphadenopathy nontender Cardiovascular: Regular rate and rhythm, no murmurs. No rubs or gallops. Normal S1 and S2 Respiratory: Clear to auscultation bilaterally. No wheezes, rales, rhonchi Abdominal: Soft and nontender. Normal bowel sounds. No guarding or rebound. Nonsurgical abdomen Extremities: No tenderness. No bruising. Normal range of motion. Normal sensation. Skin: No rash or redness. Neurological: Cranial nerves II through XII are grossly intact. Normal strength and sensation. Normal cerebellar function The rest of the physical exam is unremarkable Const Vital Signs: 12/04/24 15:21 12/04/24 16:00 Temperature 96.1 F L 98.0 F Temperature Source Temporal Pulse Rate 91 80 Respiratory Rate 18 16 Blood Pressure 123/94 H 123/80 H Blood Pressure Mean 103 94 Pulse Ox 99 100 Oxygen Delivery Method Room Air MDM MDM MDM Narrative Medical decision making narrative: Patient is a 29-year-old female presenting to the emergency department for a bump on my head. Patient was seen and examined. Vitals are stable. Patient resting bed comfortably no acute distress. Patient had no trauma to the head, I do not think this is a cephalohematoma. There is no fluctuance, warmth, drainage or erythema consistent with abscess. Do think this is irritation from her braid being too tight. She is neurologically intact. No headaches, no neck pain, no fevers. Recommended that she watch the area and ice it to help with pain and swelling. Instructed to take Motrin. Patient discharged from the Emergency Department. I do not feel that the patient's evaluation reveals any acute reason for admission at this time. I instructed them to either follow- up with their primary care physician or promptly return to the Emergency Department for reevaluation should symptoms worsen or new symptoms develop. I explained what symptoms would indicate the need to return to the emergency department. Shared decision making was used. The patient voiced understanding of the treatment plan and is agreeable with it. Clinical impression Wound check History Record Review Discussion w/independent historian: Patient Discharge Plan Triage Chief Complaint: Wound Check ED Provider: Mary Lou Aldridge Dx/Rx/DC Orders Clinical Impression: Visit for wound check Instructions: ED Wound Check (No Infection) Prescriptions: No Action ferrous sulfate [FeroSul] 325 mg (65 mg iron) tablet 325 mg PO BID Trulicity 0.75 mg/0.5 mL pen injector 0.75 mg subcut QWEEK cephalexin 500 mg capsule 500 mg PO BID 7 Days Qty: 14 0RF Primary Care Provid (more content not included)... Normal [facility] CBC W Auto Differential pane l (Bld)on 10-20-2024 Basophils (Bld) [#/Vol] [facility] C [facility] Basophils/100 WBC (Bld) 0.5 % [facility] Differential cell count method Nom (Bld) Auto [facility] Eosinophils (Bld) [#/Vol] 0.33 10*3/uL [facility] Eosinophils/100 WBC (Bld) 8.5 % [facility] Erythrocyte distribution width (RBC) [Ratio] 16 % High 11.5 - 15.0 % [facility] Hematocrit (Bld) [Volume fraction] 32.5 % Low 36.0 - 46.0 % [facility] Hemoglobin (Bld) [Mass/Vol] 10.1 g/dL Low 11.5 - 15.5 g/dL [facility] Immature granulocytes (Bld) [#/Vol] [facility] Immature granulocytes/100 WBC (Bld) 0.3 % [facility] Interpretation and review of laboratory results Abnormal [facility] Lymphocytes (Bld) [#/Vol] 1.04 10*3/uL [facility] Lymphocytes/100 WBC (Bld) 26.9 % [facility] MCH (RBC) [Entitic mass] 25.7 pg Low 26. 0 - 34.0 pg [facility] MCHC (RBC) [Mass/Vol] 31.1 g/dL 30.5 - 36.0 g/dL [facility] MCV (RBC) [Entitic vol] 82.7 fL 80.0 - 100.0 fL [facility] Monocytes (Bld) [#/Vol] 0.31 10*3/uL [facility] Monocytes/100 WBC (Bld) 8 % [facility] Neutrophils (Bld) [#/Vol] 2.15 10*3/uL [facility] Neutrophils/100 WBC (Bld) 55.8 % [facility] Nucleated RBC (Bld) [#/Vol] [facility] Nucleated RBC/100 WBC (Bld) [Ratio] 0 % /100 WBC [facility] Platelet mean volume (Bld) [Entitic vol] 11.1 fL 9.0 - 12.7 fL [facility] Platelets (Bld) [#/Vol] 343 10*3/uL [facility] RBC (Bld) [#/Vol] 3.93 10*6/uL 3.90 - 5.2 0 m/uL [facility] WBC (Bld) [#/Vol] 3.86 10*3/uL [facility] Basophils (Bld) [#/Vol] 10*3/uL Normal <0.11 C [facility] Comment on above: Order Comment: Speci men Type: BLOOD SPECIMEN Ordering Facility: [facility] Address: [address] [place] [address] Performed By: #### 5 7021-8 #### [facility] CLIA [id number] [address] [place] [address] [place] Basophils/100 WBC (Bld) 0.5 % Normal [facility] Comment on above: Order Comment: Speci men Type: BLOOD SPECIMEN Ordering Facility: [facility] Address: [address] [place] [address] Performed By: #### 5 7021-8 #### [facility] CLIA [id number] [address] [place] [address] [place] Differential cell count method Nom (Bld) Auto Normal [facility] Comment on above: Order Comment: Speci men Type: BLOOD SPECIMEN Ordering Facility: [facility] Address: [address] [place] [address] Performed By: #### 5 7021-8 #### [facility] CLIA [id number] [address] [place] [address] [place] Eosinophils (Bld) [#/Vol] 0.33 10*3/uL Normal <0.46 [facility] Comment on above: Order Comment: Speci men Type: BLOOD SPECIMEN Ordering Facility: [facility] Address: [address] [place] [address] Performed By: #### 5 7021-8 #### [facility] CLIA [id number] [address] [place] [address] [place] Eosinophils/100 WBC (Bld) 8.5 % Normal [facility] Comment on above: Order Comment: Speci men Type: BLOOD SPECIMEN Ordering Facility: [facility] Address: [address] [place] [address] Performed By: #### 5 7021-8 #### [facility] CLIA [id number] [address] [place] [address] [place] Erythrocyte distribution width (RBC) [Ratio] 16.0 % High 11.5-15.0 [facility] Comment on above: Order Comment: Speci men Type: BLOOD SPECIMEN Ordering Facility: [facility] Address: [address] [place] [address] Performed By: #### 5 7021-8 #### [facility] CLIA [id number] [address] [place] [address] [place] Hematocrit (Bld) [Volume fraction] 32.5 % Low 36.0-46.0 [facility] Comment on above: Order Comment: Speci men Type: BLOOD SPECIMEN Ordering Facility: [facility] Address: [address] [place] [address] Performed By: #### 5 7021-8 #### [facility] CLIA [id number] [address] [place] [address] [place] Hemoglobin (Bld) [Mass/Vol] 10.1 g/dL Low 11.5-15.5 [facility] Comment on above: Order Comment: Speci men Type: BLOOD SPECIMEN Ordering Facility: [facility] Address: [address] [place] [address] Performed By: #### 5 7021-8 #### [facility] CLIA [id number] [address] [place] [address] [place] Immature granulocytes (Bld) [#/Vol] 10*3/uL Normal <0.10 [facility] Comment on above: Order Comment: Speci men Type: BLOOD SPECIMEN Ordering Facility: [facility] Address: [address] [place] [address] Performed By: #### 5 7021-8 #### [facility] CLIA [id number] [address] [place] [address] [place] Immature granulocytes/100 WBC (Bld) 0.3 % Normal [facility] Comment on above: Order Comment: Speci men Type: BLOOD SPECIMEN Ordering Facility: [facility] Address: [address] [place] [address] Performed By: #### 5 7021-8 #### [facility] CLIA [id number] [address] [place] [address] [place] Lymphocytes (Bld) [#/Vol] 1.04 10*3/uL Normal 1.00-4.00 [facility] Comment on above: Order Comment: Speci men Type: BLOOD SPECIMEN Ordering Facility: [facility] Address: [address] [place] [address] Performed By: #### 5 7021-8 #### [facility] CLIA [id number] [address] [place] [address] [place] Lymphocytes/100 WBC (Bld) 26.9 % Normal [facility] Comment on above: Order Comment: Speci men Type: BLOOD SPECIMEN Ordering Facility: [facility] Address: [address] [place] [address] Performed By: #### 5 7021-8 #### [facility] CLIA [id number] [address] [place] [address] [place] MCH (RBC) [Entitic mass] 25.7 pg Low 26.0-34.0 [facility] Comment on above: Order Comment: Speci men Type: BLOOD SPECIMEN Ordering Facility: [facility] Address: [address] [place] [address] Performed By: #### 5 7021-8 #### [id number] [address] [place] [address] [place] MCHC (RBC) [Mass/Vol] 31.1 g/dL Normal 30.5-36.0 [facility] Comment on above: Order Comment: Speci men Type: BLOOD SPECIMEN Ordering Facility: [facility] Address: [address] [place] [address] Performed By: #### 5 7021-8 #### [facility] [id number] [address] [place] [address] [place] MCV (RBC) [Entitic vol] 82.7 fL Normal 80.0-100.0 [facility] Comment on above: Order Comment: Speci men Type: BLOOD SPECIMEN Ordering Facility: [facility] Address: [address] [place], [place] [id number] Performed By: #### 5 7021-8 #### [facility] CLIA [id number] [address] [place] [address] [place] Monocytes (Bld) [#/Vol] 0.31 10*3/uL Normal <0.87 [facility] Comment on above: Order Comment: Speci men Type: BLOOD SPECIMEN Ordering Facility: [facility] Address: [address] [place] [address] Performed By: #### 5 7021-8 #### [facility] CLIA [id number] [address] [place] [address] [place] Monocytes/100 WBC (Bld) 8.0 % Normal [facility] Comment on above: Order Comment: Speci men Type: BLOOD SPECIMEN Ordering Facility: [facility] Address: [address] [place] [address] Performed By: #### 5 7021-8 #### [facility] CLIA [id number] [address] [place] [place] [address] [place] Neutrophils (Bld) [#/Vol] 2.15 10*3/uL Normal 1.45-7.50 [facility] Comment on above: Order Comment: Speci men Type: BLOOD SPECIMEN Ordering Facility: [facility] Address: [address] [place] [address] Performed By: #### 5 7021-8 #### [facility] CLIA [id number] [address] [place] [address] [place] Neutrophils/100 WBC (Bld) 55.8 % Normal [facility] Comment on above: Order Comment: Speci men Type: BLOOD SPECIMEN Ordering Facility: [facility] Address: [address] [place] [address] Performed By: #### 5 7021-8 #### [facility] CLIA [id number] [address] [place] [address] [place] Nucleated RBC (Bld) [#/Vol] 10*3/uL Normal <0.01 [facility] Comment on above: Order Comment: Speci men Type: BLOOD SPECIMEN Ordering Facility: [facility] Address: [address] [place] [address] Performed By: #### 5 7021-8 #### [facility] CLIA [id number] [address] [place] [address] [place] Nucleated RBC/100 WBC (Bld) [Ratio] 0.0 /100 WBC Normal [facility] Comment on above: Order Comment: Speci men Type: BLOOD SPECIMEN Ordering Facility: [facility] Address: [address] [place] [address] Performed By: #### 5 7021-8 #### [facility] CLIA [id number] [address] [place] [address] [place] Platelet mean volume (Bld) [Entitic vol] 11.1 fL Normal 9.0-12.7 [facility] Comment on above: Order Comment: Speci men Type: BLOOD SPECIMEN Ordering Facility: [facility] Address: [address] [place] [address] Performed By: #### 5 7021-8 #### [facility] CLIA [id number] [address] [place] [address] [place] Platelets (Bld) [#/Vol] 343 10*3/uL Normal 150-400 [facility] Comment on above: Order Comment: Speci men Type: BLOOD SPECIMEN Ordering Facility: [facility] Address: [address] [place] [address] Performed By: #### 5 7021-8 #### [facility] CLIA [id number] [address] [place] [address] [place] RBC (Bld) [#/Vol] 3.93 10*6/uL Normal 3.90-5.20 [facility] Comment on above: Order Comment: Speci men Type: BLOOD SPECIMEN Ordering Facility: [facility] Address: [address] [place], [place] [address] Performed By: #### 5 7021-8 #### [facility] CLIA [id number] [address] [place] [address] [place] WBC (Bld) [#/Vol] 3.86 10*3/uL Normal 3.70-11.00 [facility] Comment on above: Order Comment: Speci men Type: BLOOD SPECIMEN Ordering Facility: [facility] Address: [address] [place], [place] [address] Performed By: #### 5 7021-8 #### [facility] CLIA [id number] [address] [place] [address] OF BIBI CNOVon 10-20-2024 CNOV Office Visit (OBGYWM) KAYLEE RICHARDSON ([id number]) 1995 F Date Time Provider Department 10/20/24 2:00 PM SNEHAL MAC OBGYWM During your visit today, we recorded the following information about you: Blood pressure Weight Height Last Period 124/78 119.3 kg 1.671 m 10/08/24 Snehal Mac APRN.ORDER TRACER 10/20/2024 2:36 PM Signed Patient declined obgyn nurseAlicia Page is a 29 year old who presents for an annual gynecologic exam with complaints, weight gain x6 months.. Irregular bleeding, termination of 2 months ago Moved to [place] from [place] recently LMP: 10/08/2024 Menses: having bleeding every 2-3 days, will stop for a few days and then start up, heavy flow Contraception: None HPV vaccine: No Last pap smear: unknown HPV: NA History of abnormal pap: No Last mammogram: never Sexually active: not currently Patient concerns for STD exposure: No. OB History No obstetric history on file. 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 No pertinent past medical history. PAST SURGICAL HISTORY Procedure Laterality Date SNGL Pt reported 2019 FAMILY HISTORY Problem Relation Age of Onset No Known Problems Mother No Known Problems Father Diabetes Maternal Grandmother Diabetes Paternal Grandmother SOCIAL HISTORY Social History Tobacco Use Smoking status: Never Smokeless tobacco: Never Vaping Use Vaping status: Never Used Substance Use Topics Alcohol use: Never Drug use: Not Currently Types: Marijuana REVIEW OF SYSTEMS Abdomen: + nausea, vomiting, constipation. + Indigestion Bladder: No dysuria, gross hematuria, urinary frequency, urinary urgency, or incontinence. Breast: No breast lumps, nipple d/c, overlying skin changes, redness or skin retraction. Allergies and current medication updated:Yes SENSITIVE EXAM: The sensitive examination was discussed with the Patient or Patient's Authorized High Speed Printer Operator. As applicable, any other physician, advance practice provider, medical student, or other health professional student that will be observing or involved in the sensitive examination for educational or training purposes was discussed with the Patient or Authorized High Speed Printer Operator. The Patient or Authorized High Speed Printer Operator has agreed to proceed with the sensitive examination. (Sensitive examination includes inspection and/or palpation of the breasts, pelvis, prostate and anorectal regions). EXAM: BP 124/78 Ht 5' 5.787 (1.67m) Wt 263 lb (119.3kg) LMP 10/08/2024 BMI 42.72 kg/(m2). GENERAL: pleasant, female in no apparent distress HEENT: Normocephalic, atraumatic, mucus membranes moist, and no lesions DERMATOLOGY: Normal, without lesions, non-icteric, and non-hirsute BREAST: soft, non-tender, symmetric, no dominant mass, normal nipple-areolar complex, no lymphadenopathy, and no nipple discharge CHEST: Normal inspiratory effort ABDOMEN: soft, non-tender, and no masses PELVIC: external genitalia normal, normal Bartholin's glands, urethra, Dotsero's glands, no vulvar lesions, no cervical lesions, good vaginal support, physiologic discharge present, normal appearing perineal body and perianal region BIMANUAL: uterus normal size, shape and consistency, no adnexal masses, and non-tender RECTOVAGINAL: deferred. NEURO: alert and oriented x3,exam grossly non-focal EXTREMITIES: normal ASSESSMENT/PLAN: 1. Encounter for gynecological examination (general) (routine) without abnormal findings - ICD9: V72.31, ICD10: Z01.419 (primary diagnosis) - Completed pap test and breast exam - Encouraged monthly BSE - Follow up for annual exam in one year. - PAP TEST 2. Screening for cervical cancer - ICD9: V76.2, ICD10: Z12.4 - PAP TEST 3. Encounter for screening for human papillomavirus (HPV) - ICD9: V73.81, ICD10: Z11.51 - PAP TEST 4. Unintended weight gain - ICD9: 783.1, ICD10: R63.5 - THYROID STIMULATING HORMONE - T4 FREE/FREE THYROXINE - T3 - THYROID PEROXIDASE ANTIBODY - COMPLETE BLOOD COUNT AND DIFFERENTIAL - COMPREHENSIVE METABOLIC PANEL - IRON AND TIBC 5. Abnormal uterine bleeding (AUB) - ICD9: 626.9, ICD10: N93.9 - US FEMALE PELVIS TRANSVAG - THYROID STIMULATING HORMONE - T4 FREE/FREE THYROXINE - T3 - THYROID PEROXIDASE ANTIBODY - COMPLETE BLOOD COUNT AND DIFFERENTIAL - COMPREHENSIVE METABOLIC PANEL - IRON AND TIBC Snehal Mac APRN.YOAN Medical Decision Making: Problems: Low: Acute, uncomplicated illness or injury Data: Unique test(s) ordered: 3+ Risk: Low: Low risk from testing/treatment Medical Decision Making Level: 3 - Low Allergies As of Date: 10/20/2024 Noted Allergy Reaction IODINE (more content not included)... Normal [facility] metabolic 2000 panelOrdered By: Beulah Glez on 10-20-2024 Albumin [Mass/Vol] 4.1 g/dL 3.9 - 4.9 g/dL [facility] ALP [Catalytic activity/Vol] 78 U/L 34 - 123 U/L [facility] ALT [Catalytic activity/Vol] 6 U/L Low 7 - 38 U/L [facility] Anion gap [Moles/Vol] 10 mmol/L 8 - 15 mmol/L [facility] AST [Catalytic activity/Vol] 10 U/L Low 13 - 35 U/L [facility] Bilirubin [Mass/Vol] 0.6 mg/dL 0.2 - 1 .3 mg/dL [facility] Calcium [Mass/Vol] 9.2 mg/dL 8.5 - 10. 2 mg/dL [facility] Chloride [Moles/Vol] 103 mmol/L 98 - 10 7 mmol/L [facility] CO2 [Moles/Vol] 23 mmol/L 22 - 30 mmol/L [facility] Creatinine [Mass/Vol] 0.69 mg/dL 0.58 - 0.96 mg/dL [facility] GFR/1.73 sq M.predicted among non-blacks MDRD (S/P/Bld) [Vol rate/Area] 122 mL/min/{1.73_m2} - PINF [facility] Comment on above: Estimated Glomerular Filtration Rate (eGFR) is calculated using the 2020 CKD-EPI creatinine equation. This equation utilizes serum creatinine, sex, and age as parameters. The creatinine assay has traceable calibration to isotope dilution-mass spectrometry. Refer to KDIGO guidelines for clinical interpretation. In patients with unstable renal function, e.g. those with acute kidney injury, the eGFR may not accurately reflect actual GFR. Glucose [Mass/Vol] 99 mg/dL 74 - 99 mg/dL [facility] Comment on above: The [place] Diab[employer] s Association (ADA) provides guidance for cutoff values for fasting glucose and random glucose. The ADA defines fasting as no caloric intake for at least 8 hours. Fasting plasma glucose results between 100 to 125 mg/dL indicate increased risk for diabetes (prediabetes). Fasting plasma glucose results greater than or equal to 126 mg/dL meet the criteria for diagnosis of diabetes. In the absence of unequivocal hyperglycemia, results should be confirmed by repeat testing. In a patient with classic symptoms of hyperglycemia or hyperglycemic crisis, random plasma glucose results greater than or equal to 200 mg/dL meet the criteria for diagnosis of diabetes. Reference: Standards of Medical Care in Diabetes 2016, [place] Diabetes Association. Diabetes Care. 2016.39(Suppl 1). Interpretation and review of laboratory results Abnormal [facility] Potassium [Moles/Vol] 4.2 mmol/L 3.7 - 5.1 mmol/L [facility] Protein [Mass/Vol] 7.8 g/dL 6.3 - 8.0 g/dL [facility] Sodium [Moles/Vol] 136 mmol/L 136 - 144 mmol/L [facility] Urea nitrogen [Mass/Vol] 11 mg/dL 7 - 21 mg/d L [facility] Comprehensive metabolic 2000 panelon 10-20-2024 Albumin [Mass/Vol] 4.1 g/dL Normal 3.9-4.9 [facility] Comment on above: Order Comment: Speci men Type: BLOOD SPECIMEN Ordering Facility: [facility] Address: [address] [place] [address] Performed By: #### 2 4323-8 #### [facility] CLIA [id number] [address] [place] [address] [place] ALP [Catalytic activity/Vol] 78 U/L Normal 34-123 [facility] Comment on above: Order Comment: Speci men Type: BLOOD SPECIMEN Ordering Facility: [facility] Address: [address] [place] [address] Performed By: #### 2 4323-8 #### [facility] CLIA [id number] [address] [place] [address] [place] ALT [Catalytic activity/Vol] 6 U/L Low 7-38 [facility] Comment on above: Order Comment: Speci men Type: BLOOD SPECIMEN Ordering Facility: [facility] Address: [address] [place] [address] Performed By: #### 2 4323-8 #### [facility] CLIA [id number] [address] [place] [address] [place] Anion gap [Moles/Vol] 10 mmol/L Normal 8-15 [facility] Comment on above: Order Comment: Speci men Type: BLOOD SPECIMEN Ordering Facility: [facility] Address: [address] [place] [address] Performed By: #### 2 4323-8 #### [facility] CLIA [id number] [address] [place] [address] [place] AST [Catalytic activity/Vol] 10 U/L Low 13-35 [facility] Comment on above: Order Comment: Speci men Type: BLOOD SPECIMEN Ordering Facility: [facility] Address: [address] [place] [address] Performed By: #### 2 4323-8 #### [facility] CLIA [id number] [address] [place] [address] [place] Bilirubin [Mass/Vol] 0.6 mg/dL Normal 0.2-1.3 [facility] Comment on above: Order Comment: Speci men Type: BLOOD SPECIMEN Ordering Facility: [facility] Address: [address] [place] [id number] Performed By: #### 2 4323-8 #### [facility] CLIA [id number] [address] [place] [address] [place] Calcium [Mass/Vol] 9.2 mg/dL Normal 8.5-10.2 [facility] Comment on above: Order Comment: Speci men Type: BLOOD SPECIMEN Ordering Facility: [facility] Address: [address] [place] [address] Performed By: #### 2 4323-8 #### [facility] CLIA [id number] [address] [place] [address] [place] Chloride [Moles/Vol] 103 mmol/L Normal 98-107 [facility] Comment on above: Order Comment: Speci men Type: BLOOD SPECIMEN Ordering Facility: [facility] Address: [address] [place] [address] Performed By: #### 2 4323-8 #### [facility] CLIA [id number] [address] [place] [address] [place] CO2 [Moles/Vol] 23 mmol/L Normal 22-30 [facility] Comment on above: Order Comment: Speci men Type: BLOOD SPECIMEN Ordering Facility: [facility] Address: [address] [place] [address] Performed By: #### 2 4323-8 #### [facility] CLIA [id number] [address] [place] [address] [place] Creatinine [Mass/Vol] 0.69 mg/dL Normal 0.58-0.96 [facility] Comment on above: Order Comment: Suleman johnson Type: BLOOD SPECIMEN Order[facility] Facility[facility] Address: [address] [place] [address] Performed By: #### 2 4323-8 #### [id number] [address] [place] [address] [place] eGFRcr SerPlBld CKD-EPI 2020 122 mL/min/1.73m??? Normal >=60 [facility] Comment on above: Order Comment: Suleman johnson Type: BLOOD SPECIMEN Ordering Facility: [facility] Address: [address] [place] [address] Result Comment: Madeleine mated Glomerular Filtration Rate (eGFR) is calculated using the 2020 CKD-EPI creatinine equation. This equation utilizes serum creatinine, sex, and age as parameters. The creatinine assay has traceable calibration to isotope dilution-mass spectrometry. Refer to KDIGO guidelines for clinical interpretation. In patients with unstable renal function, e.g. those with acute kidney injury, the eGFR may not accurately reflect actual GFR. Performed By: #### 2 4323-8 #### [facility] [id number] [address] [place] [address] [place] Glucose [Mass/Vol] 99 mg/dL Normal 74-99 [facility] Comment on above: Order Comment: Suleman johnson Type: BLOOD SPECIMEN Ordering Facility: [facility] Address: [address] [place], [place] [address] Result Comment: The [place] Diabetes Association (ADA) provides guidance for cutoff values for fasting glucose and random glucose. The ADA defines fasting as no caloric intake for at least 8 hours. Fasting plasma glucose results between 100 to 125 mg/dL indicate increased risk for diabetes (prediabetes). Fasting plasma glucose results greater than or equal to 126 mg/dL meet the criteria for diagnosis of diabetes. In the absence of unequivocal hyperglycemia, results should be confirmed by repeat testing. In a patient with classic symptoms of hyperglycemia or hyperglycemic crisis, random plasma glucose results greater than or equal to 200 mg/dL meet the criteria for diagnosis of diabetes. Reference: Standards of Medical Care in Diabetes 2016, [place] Diabetes Association. Diabetes Care. 2016.39(Suppl 1). Performed By: #### 2 4323-8 #### [facility] CLIA [id number] [address] [place] [address] [place] Potassium [Moles/Vol] 4.2 mmol/L Normal 3.7-5.1 [facility] Comment on above: Order Comment: Speci men Type: BLOOD SPECIMEN Ordering Facility: [facility] Address: [address] [place] [address] Performed By: #### 2 4323-8 #### [facility] [id number] [address] [place] [address] [place] Protein [Mass/Vol] 7.8 g/dL Normal 6.3-8.0 [facility] Comment on above: Order Comment: Speci men Type: BLOOD SPECIMEN Ordering Facility: [facility] Address: [address] [place] [address] Performed By: #### 2 4323-8 #### [facility] [id number] [address] [place] [address] [place] Sodium [Moles/Vol] 136 mmol/L Normal 136-144 [facility] Comment on above: Order Comment: Speci men Type: BLOOD SPECIMEN Order[facility] Facility[facility] Address: [address] [place] [address] Performed By: #### 2 4323-8 #### [facility] [id number] [address] [place] [address] [place] Urea nitrogen [Mass/Vol] 11 mg/dL Normal 7-21 [facility] Comment on above: Order Comment: Speci men Type: BLOOD SPECIMEN [facility] Facility[facility] Address: [address] [place] [address] Performed By: #### 2 4323-8 #### [facility] CLIA [id number] [address] [place], [place] [address] [place] Iron and Iron binding capaci ty panelon 10-20-2024 Iron [Mass/Vol] 48 ug/dL Normal 41-186 [facility] Comment on above: Order Comment: Speci men Type: BLOOD SPECIMEN Order[facility] Facility[facility] Address: [address] [place] [address] Performed By: #### 3 053-6, 3024-7, 3016-3, 92638-5 #### [facility] CLIA [id number] [address] [place] [address] [place] Iron binding capacity [Mass/Vol] 407 ug/dL High 232-386 [facility] Comment on above: Order Comment: Speci men Type: BLOOD SPECIMEN Order[facility] Facility[facility] Address: [address] [place] [address] Performed By: #### 3 053-6, 3024-7, 3016-3, 85037-5 #### [facility] CLIA [id number] [address] [place] [address] [place] Iron/TIBC [Molar ratio] 11.8 % Low 15.0-57.0 C [facility] Comment on above: Order Comment: Speci men Type: BLOOD SPECIMEN Ordering Facility[facility] Address: [address] [place] [address] Performed By: #### 3 053-6, 3024-7, 3016-3, 55250-6 #### [facility] CLIA [id number] [address] [place] [address] [place] PAP TESTon 10-20-2024 ADEQUACY Normal [facility] Comment on above: Order Comment: Speci men Type: FLUID SPECIMEN Ordering Facility: [facility] Address: [address] [place] [address] Result Comment: Sati sfactory for interpretation. Transformation zone present Performed By: #### L [id number] #### [facility] CLIA [id number] [address] [place] [address] [place] CASE REPORT Normal [facility] Comment on above: Order Comment: Speci men Type: FLUID SPECIMEN Ordering Facility: [facility] Address: [address] [place] [address] Result Comment: Gyne cologic Cytology Report Case: [id number] Authorizing Provider: Snehal Mac APRN.ORDER TRACER Collected: 10/20/2024 02:38 PM Ordering Location: OB/Gynecology Received: 10/20/2024 04:30 PM First Screen: [place], [place], [place], ASCP Specimen: Pap Test, ThinPrep, Cervix Performed By: #### L [id number] #### [facility] CLIA [id number] [address] [place] [address] [place] CLINICAL HISTORY, CYTOLOGY, COCOA BEAN CLEANER Routine Exam Normal [facility] Comment on above: Order Comment: Speci men Type: FLUID SPECIMEN [facility] Address: [address] [place] [address] Performed By: #### L [id number] #### [facility] CLIA [id number] [address] [place] [address] [place] CYTOLOGY PAP OTHER INTERPRETATION Predominance of coccobacilli consistent with shift in vaginal kaz. Normal [facility] Comment on above: Order Comment: Speci men Type: FLUID SPECIMEN Order[facility] Address: [address] [place] [address] Performed By: #### L [id number] #### [facility] CLIA [id number] [address] [place] [address] [place] FINAL PERFORMING LAB Normal [facility] Comment on above: Order Comment: Speci men Type: FLUID SPECIMEN Ordering Facility: [facility] Address: [address], [place] [address] Result Comment: Tech nical component, pharm tech screening performed at: [facility], [facility] [address] [address] CLIA: [id number] Diagnostic interpretation performed at: [facility], [address] [place] [address] [place] [address] CLIA# [id number] Hand Tennis Ball Coverer: Amarjit Parish MD Performed By: #### L [id number] #### [facility] CLIA [id number] [address] [place], [place] [address] [place] INTERPRETATION, CYTOLOGY, COCOA BEAN CLEANER Normal [facility] Comment on above: Order Comment: Speci men Type: FLUID SPECIMEN Ordering Facility: [facility] Address: [address] [place] [address] Result Comment: Nega tive for intraepithelial lesion or malignancy. at 1448 EDT Performed By: #### L [id number] #### [facility] CLIA [id number] [address] [place] [address] [place] LMP 10/08/2024 Normal [facility] Comment on above: Order Comment: Speci men Type: FLUID SPECIMEN Order[facility] Facility[facility] Address: [address] [place] [address] Performed By: #### L [id number] #### [facility] CLIA [id number] [address] [place], [place] [id number] [place] PAP DISCLAIMER COMMENT The Pap Smear is a screening test for cervical cancer. False negative results occur with all screening tests, emphasizing the need for rescreening at recommended intervals, and clinical correlation. Normal [facility] Comment on above: Order Comment: Speci men Type: FLUID SPECIMEN Order[facility] Address: [address] [place] [address] Performed By: #### L [id number] #### [facility] CLIA [id number] [address] [place] [address] [place] PAP WATER FILTERER COMMENT This specimen has been analyzed by the FDA-approved Big red truck driving school System, which uses digital imaging and an enhanced artificial intelligence image analysis algorithm to identify rahman of interest on the microscopic slide, to assist the sheetmetal patternmaker and pathologist in evaluating cells on ThinPrep Pap tests. Following analysis, rahman of interest on the microscopic slide selected by the algorithm are reviewed by a sheetmetal patternmaker. If a sample requires hierarchical review, the pathologist will review the same rahman of interest selected by the algorithm prior to final interpretation. Normal [facility] Comment on above: Order Comment: Speci men Type: FLUID SPECIMEN Order[facility] Facility[facility] Address: [address] [place] [address] Performed By: #### L [id number] #### [facility] CLIA [id number] [address] [place] [address] [place] T3 SerPl-mCncon 10-20-2024 T3 [Mass/Vol] 138 ng/dL Normal 79-165 [facility] Comment on above: Order Comment: Speci men Type: BLOOD SPECIMEN Order[facility] Facility[facility] Address: [address] [place] [address] Performed By: #### 3 053-6, 3024-7, 3016-3, 58878-5 #### [facility] CLIA [id number] [address] [place] [address] [place] T4 Free SerPl-mCncon 025 Free T4 [Mass/Vol] 1.2 ng/dL Normal 0.9-1.7 [facility] Comment on above: Order Comment: Speci men Type: BLOOD SPECIMEN Ordering Facility[facility] Address: [address] [place] [address] Performed By: #### 3 053-6, 3024-7, 3016-3, 06744-2 #### [facility] CLIA [id number] [address] [place] [address] [place] THYROID PEROXIDASE ANTIBODYo n 10-20-2024 TPO Ab Qn 5.1 [IU]/mL Normal <5.6 [facility] Comment on above: Order Comment: Speci men Type: BLOOD SPECIMEN Ordering Facility: [facility] Address: [address] [place] [address] Result Comment: Thyr oid Peroxidase Antibody test is used as an aid in diagnosis of autoimmune thyroid disease. Clinical correlation is required. Performed By: #### M ICRO #### [facility] CLIA [id number] [address] [place] [address] [place] TSH SerPl-aCncon 10-20-2024 TSH Qn 1.610 m[IU]/L Normal 0.270-4.200 [facility] Comment on above: Order Comment: Speci men Type: BLOOD SPECIMEN Ordering Facility: [facility] Address: [address] [place] [address] Result Comment: If t he patient is , TSH reference range varies by gestational period: First Trimester (weeks 9-12): 0.180-2.990 mIU/L Second Trimester: 0.110-3.980 mIU/L Third Trimester: 0.480-4.710 mIU/L Jesse Castillo et al. A Practical Approach for the Verifications and Determination of Site- and Trimester-Specific Reference Intervals for Thyroid Function tests in . Thyroid, 2019:29:3:412-420. Alex Santos, et al. 2017 Guidelines of the [place] [employer] for the Diagnosis and Management of Thyroid Disease during and the . Thyroid, 2017:27:3:315-389. Performed By: #### 3 053-6, 3024-7, 3016-3, 86862-7 #### [facility] CLIA [id number] [address] [place] [address] [place] Urine Cultureon 08-16-2024 [facility] Urine Culture Escherichia coli [place] Count >100,000 Escherichia coli: REACTION Ampicillin Islt LEONILA >=32 Ampicillin+Sulbac Islt LEONILA >=32 R Cefepime Islt LEONILA <=0.12 S cefTRIAXone Islt LEONILA <=0.25 S Ciprofloxacin Islt LEONILA <=0.06 S B-Lactamase Extended Susc Islt NEG Gentamicin Islt LEONILA >=16 R levoFLOXacin Islt LEONILA <=0.12 S Meropenem Islt LEONILA <=0.25 S Nitrofurantoin Islt LEONILA <=16 S Pip+Tazo Islt LEONILA 64 R TMP SMX Islt LEONILA >=320 R Normal [facility] Comment on above: Performed By: #### M 100.2200 ####[facility] [id number] [place], [place], [id number] Absolute lymphocyte countOrd ered By: [facility] on 08-14-[facility]24 Lymphocytes Auto (Unsp spec) [#/Vol] 1.25 10*3/uL 0.83-4.51 [facility] Absolute neutrophil countOrd ered By: [facility] on 08-14-2024 Neutrophils (Bld) [#/Vol] 4.1 10*3/uL 2.0-7.7 [facility] Anion gap in Serum or Plasma Ordered By: York Ashly on 08-14-2024 Anion gap [Moles/Vol] 12 mmol/L 5-15 [facility] Automated lymphocyte count a s percentage of total leukocytesOrdered By: York Ashly on 08-14-2024 Lymphocytes/100 WBC Auto (Unsp spec) 20.4 % 19-41 [facility] [id number] 08-14-2024 ABO and Rh group Nom (Bld) Blood group A Rh(D) positive Normal [facility] Comment on above: Performed By: #### L 503.6005, B882-1 #### [facility] [address] [place], [place], [id number] BUN/creatinine ratioOrdered By: Adalberto Limon on 08-14-2024 Urea nitrogen/Creatinine [Mass ratio] 12.6 mg/mg - [facility] Basic Metabolic Profile (BMP )on 08-14-2024 BUN/CRE 12.6 RATIO Normal 01-08 [facility] Comment on above: Performed By: #### L 500.2500, L700.8000, L100.0100 #### [facility] [address] [place], [address] Calcium [Mass/Vol] 8.8 mg/dL Normal 7.6-11.0 [facility] Comment on above: Performed By: #### L 500.2500, L700.8000, L100.0100 #### [facility] [address] [place], [address] Chloride [Moles/Vol] 100 mmol/L Normal 98-[address] [facility] Comment on above: Performed By: #### L 500.2500, L700.8000, L100.0100 #### [facility] [address] [place], [address] CO2 [Moles/Vol] 22.0 mmol/L Normal 21.0-32.0 [facility] Comment on above: Performed By: #### L 500.2500, L700.8000, L100.0100 #### [facility] [address] [place], [address] Creatinine [Mass/Vol] 0.60 mg/dL Low 0.70-1.20 [facility] Comment on above: Performed By: #### L 500.2500, L700.8000, L100.0100 #### [facility] [address] [place], [address] GAP 12 Normal 5-15 [facility] Comment on above: Performed By: #### L 500.2500, L700.8000, L100.0100 #### [facility] [address] [place], [address] GFR/1.73 sq M.predicted among non-blacks MDRD (S/P/Bld) [Vol rate/Area] 126 mL/min/{1.73_m2} Normal >60 [facility] Comment on above: Result Comment: mL/m in/1.73m2 CKD-EPI Creatinine Equation (2020) Performed By: #### L 500.2500, L700.8000, L100.0100 #### [facility] [address] [place], [address] Glucose [Mass/Vol] 101 mg/dL High 70-99 [facility] Comment on above: Performed By: #### L 500.2500, L700.8000, L100.0100 #### [facility] [address] [place], [address] Potassium [Moles/Vol] 3.7 mmol/L Normal 3.3-5.1 [facility] Comment on above: Performed By: #### L 500.2500, L700.8000, L100.0100 #### [facility] [address] [place], [address] Sodium [Moles/Vol] 133 mmol/L Normal 133-145 [facility] Comment on above: Performed By: #### L 500.2500, L700.8000, L100.0100 #### [facility] [address] [place], [address] Urea nitrogen [Mass/Vol] 8 mg/dL Normal 4-19 [facility] Comment on above: Performed By: #### L 500.2500, L700.8000, L100.0100 #### [facility] [address] [place], [address] Basophil percentageOrdered B y: Adalberto Limon on 08-14-2024 Basophils/100 WBC (Bld) 0.3 % 0-1 [facility] Bilirubin Test strip Ql (U)O rdered By: Adalberto Limon on 08-14-2024 Bilirubin Ql (U) Negative Negative [facility] CBC W/Diff, Automatedon 07-21 Absolute Neut Normal 2.0-7.7 [facility] Comment on above: Result Comment: DUPL CIATE Performed By: #### L 100.0100 #### [facility] [address] [place], [address] HCT Normal 37-47 [facility] Comment on above: Result Comment: DUPL CIATE Performed By: #### L 100.0100 #### [facility] [address] [place], [address] HGB Normal 12.0-15.0 [facility] Comment on above: Result Comment: DUPL CIATE Performed By: #### L 100.0100 #### [facility] [address] [place], [address] MCH Normal 27.0-32.0 [facility] Comment on above: Result Comment: DUPL CIATE Performed By: #### L 100.0100 #### [facility] [address] [place], [address] MCHC Normal 32-36 [facility] Comment on above: Result Comment: DUPL CIATE Performed By: #### L 100.0100 #### [facility] [address] [place], [address] MCV Normal 81-99 [facility] Comment on above: Result Comment: DUPL CIATE Performed By: #### L 100.0100 #### [facility] [address] [place], [address] NEUT% Normal 47-70 [facility] Comment on above: Result Comment: DUPL CIATE Performed By: #### L 100.0100 #### [facility] [address] [place], [address] PLT Normal 150-450 [facility] Comment on above: Result Comment: DUPL CIATE Performed By: #### L 100.0100 #### [facility] [address] [place], [address] RBC Normal 4.2-5.4 [facility] Comment on above: Result Comment: DUPL CIATE Performed By: #### L 100.0100 #### [facility] [address] [place], [address] RDW CV Normal 11.6-14.6 [facility] Comment on above: Result Comment: DUPL CIATE Performed By: #### L 100.0100 #### [facility] [address] [place], [address] RDW SD Normal 35.1-43.9 [facility] Comment on above: Result Comment: DUPL CIATE Performed By: #### L 100.0100 #### [facility] [address] [place], [address] WBC Normal 4.4-11.0 [facility] Comment on above: Result Comment: DUPL CIATE Performed By: #### L 100.0100 #### [facility] [address] [place], [address] Absolute Lymph 1.25 X10 3/uL Normal 0.83-4.51 [facility] Comment on above: Performed By: #### L 500.2500, L700.8000, L100.0100 #### [facility] [address] [place], [address] Absolute Neut 4.1 X10 3/uL Normal 2.0-7.7 [facility] Comment on above: Performed By: #### L 500.2500, L700.8000, L100.0100 #### [facility] [address] [place], [address] Basophils/100 WBC (Bld) 0.3 % Normal 0-1 [facility] Comment on above: Performed By: #### L 500.2500, L700.8000, L100.0100 #### [facility] [address] [place], [address] Eosinophils/100 WBC (Bld) 6.5 % High 0-5 [facility] Comment on above: Performed By: #### L 500.2500, L700.8000, L100.0100 #### [facility] [address] [place], [address] Erythrocyte distribution width (RBC) [Ratio] 14.5 % Normal 11.6-14.6 [facility] Comment on above: Performed By: #### L 500.2500, L700.8000, L100.0100 #### [facility] [address] [place], [address] Hematocrit (Bld) [Volume fraction] 31.1 % Low 37-47 [facility] Comment on above: Performed By: #### L 500.2500, L700.8000, L100.0100 #### [facility] [address] [place], [address] Hemoglobin (Bld) [Mass/Vol] 10.0 g/dL Low 12.0-15.0 [facility] Comment on above: Performed By: #### L 500.2500, L700.8000, L100.0100 #### [facility] [address] [place], [address] IG% 0.500 Normal 0.0-0.9 [facility] Comment on above: Result Comment: IG% - Immature Granulocytes (promyelocytes, myelocytes and metamyelocytes) > 1% indicates that a LEFT SHIFT is Present. Performed By: #### L 500.2500, L700.8000, L100.0100 #### [facility] [address] [place], [address] Lymphocytes/100 WBC (Bld) 20.4 % Normal 19-41 [facility] Comment on above: Performed By: #### L 500.2500, L700.8000, L100.0100 #### [facility] [address] [place], [address] MCH (RBC) [Entitic mass] 28.7 pg Normal 27.0-32.0 [facility] Comment on above: Performed By: #### L 500.2500, L700.8000, L100.0100 #### [facility] [address] [place], [address] MCHC (RBC) [Mass/Vol] 32.2 g/dL Normal 32-36 [facility] Comment on above: Performed By: #### L 500.2500, L700.8000, L100.0100 #### [facility] [address] [place], [address] MCV (RBC) [Entitic vol] 89.1 fL Normal 81-99 [facility] Comment on above: Performed By: #### L 500.2500, L700.8000, L100.0100 #### [facility] [address] [place], [address] Monocytes/100 WBC (Bld) 6.0 % Normal 0-10 [facility] Comment on above: Performed By: #### L 500.2500, L700.8000, L100.0100 #### [facility] [address] [place], [address] Neutrophils/100 WBC (Bld) 66.3 % Normal 47-70 [facility] Comment on above: Performed By: #### L 500.2500, L700.8000, L100.0100 #### [facility] [address] [place], [address] Nucleated RBC (Bld) [#/Vol] 0 10*3/uL Normal 0-5 [facility] Comment on above: Performed By: #### L 500.2500, L700.8000, L100.0100 #### [facility] [address] [place], [address] Platelet mean volume (Bld) [Entitic vol] 10.8 fL Normal 6.2-12.0 [facility] Comment on above: Performed By: #### L 500.2500, L700.8000, L100.0100 #### [facility] [address] [place], [address] Platelets (Bld) [#/Vol] 198 10*3/uL Normal 150-450 [facility] Comment on above: Performed By: #### L 500.2500, L700.8000, L100.0100 #### [facility] [address] [place], [address] RBC (Bld) [#/Vol] 3.49 10*6/uL Low 4.2-5.4 [facility] Comment on above: Performed By: #### L 500.2500, L700.8000, L100.0100 #### [facility] [address] [place], [address] RDW SD 45.2 fl High 35.1-43.9 [facility] Comment on above: Performed By: #### L 500.2500, L700.8000, L100.0100 #### [facility] [address] [place], [address] WBC (Bld) [#/Vol] 6.1 10*3/uL Normal 4.4-11.0 [facility] Comment on above: Performed By: #### L 500.2500, L700.8000, L100.0100 #### [facility] [address] [place], [address] Carbon dioxide, total [Moles /volume] in Central venous bloodOrdered By: Adalberto Limon on 08-14-2024 CO2 [Moles/Vol] 22.0 mmol/L 21.0-32.0 [facility] Chloride assayOrdered By: Chidi Limon on 08-14-2024 Chloride [Moles/Vol] 100 mmol/L 98-[address] [facility] Emergency Department Summary on 08-14-2024 Emergency Department Summary [facility] Medical Records Department [address] [place] [address] Emergency Department Summary 08/14/24 MR#: [id number] Acct: [id number] Name: KAYLEE RICHARDSON Rep #: [id number] : 1995 29 From: Adalberto Limon DO PCP: Care Physician,No Primary Status:REG ER Location: ED HPI HPI - Female History of Present Illness Chief Complaint: Vag Bleeding Narrative Narrative: Chief complaint and HPI: Vaginal bleeding. 29-year-old female who is G5, P2, A2-1 miscarriage/1 elective presents for evaluation of vaginal bleeding. Patient states she recently moved here from [place]. Does not follow an ACTUARY. States her last menstrual cycle was in May. Patient states she is about 9 weeks . Has not had an official ultrasound or followed with ACTUARY. Patient states that she went on the Internet with a website called [employer] and ordered medication to have an elective . She took Mifepristone and 4 pills of Misoprostol approximately 24 hours ago. Patient states today she started to have vaginal bleeding in which she is passing multiple large clots. Associated symptom is abdominal cramping which feels like contractions, nausea, and lightheadedness. She denies any fever, chills, shortness of breath, chest pain, dysuria, diarrhea. Review of systems: See HPI Medications: As listed on the chart Allergies: As listed on the chart PFSH: Per chart Vital signs: As listed on the chart. Reviewed. Physical exam: Gen: A O x3, uncomfortable secondary to pain Head: Normocephalic, atraumatic Eyes: No sclera icterus, conjunctiva clear ENT: Mildly dry mucous membranes CV: RRR, no murmurs, no peripheral edema Resp: Lungs CTA BL, no w/r/c GI: Abd soft, non-distended, non-tender to palpation although endorsing pelvic cramping, no r/r/g : No CVA tenderness Pelvic: Normal external genitalia. No lesions, masses, or rashes appreciated. Active vaginal bleeding with a large clot. Cervix unable to be visualized due to vaginal bleeding. Musc: Full ROM, no deformity Skin: Warm, dry Neuro: Alert, oriented, grossly intact, sensation intact Psych: Cooperative, appropriate mood and affect PFSH PFSH Medical History no medical history Home Medications ???Medication ???Instructions ???Recorded ???Last Taken ???Type cephalexin 500 mg capsule 500 mg PO BID 7 days #14 caps 07/21 09/13 Unknown Rx Allergy/AdvReac Type Severity Reaction Status Date / Time iodine Allergy Mild Rash Verified 08/14/24 13:52 Penicillins Allergy Mild RASH Verified 08/14/24 13:52 Family History no significant family his Surgical History no surgical history Social History Smoking Status: Current every day smoker tobacco type: e-cigarettes EXAM Physical Exam Const Vital Signs: 08/14/24 13:52 08/14/24 15:51 08/14/24 16:53 Temperature 97 F L 97 F L Temperature Source Temporal Pulse Rate 92 90 86 Respiratory Rate 18 16 Blood Pressure 120/74 126/77 H 103/88 H Blood Pressure Mean 89 93 93 Pulse Ox 100 100 100 Oxygen Delivery Method Room Air Room Air 08/14/24 16:54 08/14/24 17:00 Temperature Temperature Source Pulse Rate 86 Respiratory Rate Blood Pressure 103/88 H 108/71 Blood Pressure Mean 93 83 Pulse Ox 100 Oxygen Delivery Method Room Air MDM MDM MDM Narrative Medical decision making narrative: 29-year-old female who is G5, P2, A2-1 miscarriage/1 elective presents for evaluation of vaginal bleeding. Patient reports she is 9 weeks and about pills over the Internet. She took Mifepristone and 4 pills of Misoprostol approximately 24 hours ago. Today started having vaginal bleeding in which she is passing multiple large clots. Endorsing contractions, nausea, lightheadedness. On physical exam patient has vaginal bleeding with a large clot. I am unable to visualize cervix. Differential diagnosis includes but is not limited to complete , incomplete , ruptured ectopic , UTI, anemia, dehydration. Laboratory workup including vaginal ultrasound. Given patient's symptoms as well as the reported amount of bleeding, ACTUARY on-call Dr. Heredia was contacted early to be made aware of the patient incase exam worsens or changes. He agrees with the workup that was ordered. Vitals are stable here in the emergency department. Morphine, Zofran, NS bolus ordered. CBC without leukocytosis. Patient has anemia with hemoglobin at 10. States she has history of anemia however does not know her baseline. Platelets unremarkable. BMP unremarkable without SIL or significant electrolyte abnormality. Lactic acid unremarkable. Beta-hCG 17,903. Patient is A positive. Pelvic ultrasound pending at this time. (more content not included)... Normal [facility] Eosinophil percentageOrdered By: Adalberto Limon on 08-14-2024 Eosinophils/100 WBC (Bld) 6.5 % High 0-5 [facility] Erythrocyte distribution wid th ratioOrdered By: York Ashly on 08-14-2024 Erythrocyte distribution width (RBC) [Ratio] 14.5 % 11.6-14.6 [facility] Erythrocyte distribution wid th standard deviationOrdered By: York Brennon Elizabeth on 08-14-2024 Erythrocyte distribution width (RBC) [Ratio] 45.2 fl High 35.1-43.9 [facility] Glomerular filtration rate ( GFR) estimation/1.73 sq m using serum, plasma, or whole bOrdered By: Adalberto Limon on 08-14-2024 GFR/1.73 sq M.predicted among non-blacks MDRD (S/P/Bld) [Vol rate/Area] 126 mL/min/{1.73_m2} >60 [facility] Comment on above: mL/min/1.73m2 CKD-EP I Creatinine Equation (2020) Hematocrit Auto (Bld) [Volum e fraction]Ordered By: Adalberto Limon on 08-14-2024 Hematocrit (Bld) [Volume fraction] 31.1 % Low 37-47 [facility] Hemoglobin measurementOrdere d By: Adalberto Limon on 08-14-2024 Hemoglobin (Bld) [Mass/Vol] 10.0 g/dL Low 12.0-15.0 [facility] Immature granulocytes/100 WB C Auto (Bld)Ordered By: Adalberto Limon on 08-14-2024 Immature granulocytes/100 WBC (Bld) 0.500 % 0.0-0.9 [facility] Comment on above: IG% - Immature Granu locytes (promyelocytes, myelocytes and metamyelocytes) > 1% indicates that a LEFT SHIFT is Present. Ketones Test strip Ql (U)Ord ered By: Adalberto Limon on 08-14-2024 Ketones Ql (U) Negative Negative [facility] Lactic Acidon 08-14-2024 Lactate [Moles/Vol] 1.1 mmol/L Normal 0.0-2.0 [facility] Comment on above: Order Comment: Y Performed By: #### L 503.6005, B882-1 ####[facility] [address] [place], [address] Lactic acid measurementOrder ed By: Adalberto Limon on 08-14-2024 Lactate [Moles/Vol] 1.1 mmol/L 0.0-2.0 [facility] MCV (mean corpuscular volume ) determinationOrdered By: Adalberto Limon on 08-14-2024 MCV (RBC) [Entitic vol] 89.1 fL 81-99 [facility] Mean corpuscular hemoglobin (MCH) determinationOrdered By: Adalberto Ashly on 08-14-2024 MCH (RBC) [Entitic mass] 28.7 pg 27.0-32.0 [facility] Mean corpuscular hemoglobin concentration (MCHC) determinationOrdered By: Adalberto Limon on 08-14-2024 MCHC (RBC) [Mass/Vol] 32.2 g/dL 32-36 [facility] Mean platelet volume determi nationOrdered By: Adalberto Limon on 08-14-2024 Platelet mean volume (Bld) [Entitic vol] 10.8 fL 6.2-12.0 [facility] Microscopic analysis of urin e for red blood cells (RBC)Ordered By: Adalberto Limon on 08-14-2024 Microscopic analysis of urine for red blood cells (RBC) 10-25 SEEN /hpf 0-5 [facility] Monocyte percentageOrdered B y: Adalberto Limon on 08-14-2024 Monocytes/100 WBC (Bld) 6.0 % 0-10 [facility] Mucus LM Ql (Urine sed)Order ed By: Adalberto Limon on 08-14-2024 Mucus Ql (Urine sed) 0 SEEN /hpf [facility] Neutrophil percentageOrdered By: Adalberto Limon on 08-14-2024 Neutrophils/100 WBC (Bld) 66.3 % 47-70 [facility] Nitrite Test strip Ql (U)Ord ered By: Adalberto Limon on 08-14-2024 Nitrite Ql (U) Positive High Negative [facility] Nucleated red blood cell per centageOrdered By: Adalberto Limon on 08-14-2024 Nucleated RBC/100 WBC (Bld) [Ratio] 0 % 0-5 [facility] Platelet countOrdered By: Chidi Limon on 08-14-2024 Platelets (Bld) [#/Vol] 198 10*3/uL 150-450 [facility] Potassium measurement (mass/ volume)Ordered By: Adalberto Limon on 08-14-2024 Potassium (Unsp spec) [Mass/Vol] 3.7 mmol/L 3.3-5.1 [facility] Protein Test strip Ql (U)Ord ered By: Adalberto Limon on 08-14-2024 Protein Ql (U) 30 mg/dl High Negative [facility] RBC Auto (Bld) [#/Vol]Ordere d By: Adalberto Limon on 08-14-2024 RBC (Bld) [#/Vol] 3.49 10*6/uL Low 4.2-5.4 [facility] Serum creatinine measurement (mass/volume)Ordered By: Adalberto Limon on 08-14-2024 Creatinine [Mass/Vol] 0.60 mg/dL Low 0.70-1.20 [facility] Serum glucose measurement (m ass/volume)Ordered By: Adalberto Limon on 08-14-2024 Glucose [Mass/Vol] 101 mg/dL High 70-99 [facility] Serum human chorionic gonado tropin detection for pregnancyOrdered By: Adalberto Limon on 08-14-2024 HCG ( test[place]l [address] mIU/mL High <9 [facility] Comment on above: Gestational Age0.2-1 Week: 5-50 mIU/mL1-2 Weeks: 50-500 mIU/mL2-3 Weeks: 100-5000 mIU/mL3-4 Weeks: 500-10,000 mIU/mL4-5 Weeks:1000-50,000 mIU/mL5-6 Weeks: 10,000-100,000 mIU/mL6-8 Weeks: 15,000-200,000 mIU/mL2-3 Months:10,000-100,000 mIU/mL Serum or plasma calcium michael urement (mass/volume)Ordered By: Adalberto Elizabeth on 08-14-2024 Calcium [Mass/Vol] 8.8 mg/dL 7.6-11.0 [facility] Serum or plasma urea nitroge n measurement (mass/volume)Ordered By: Adalberto Limon on 08-14-2024 Urea nitrogen [Mass/Vol] 8 mg/dL 4-19 [facility] Sodium levelOrdered By: Tony Limon on 08-14-2024 Sodium [Moles/Vol] 133 mmol/L 133-145 [facility] Squamous epithelial cells de tection in urine sediment by light microscopyOrdered By: Adalberto Limon on 08-14-2024 Epithelial cells.squamous LM Ql (Urine sed) 0-5 SEEN /hpf 5-10 [facility] Transvaginal w/Preg USon Transvaginal w/Preg US [facility] Services [address] [place], [place] [id number] Transvaginal w/Preg US MR#: [id number] Acct: [id number] Name: KAYLEE RICHARDSON Rep #: [id number] : 1995 F 29 From: Pallavi Garcia nd, [place] PCP: Care Physician,No Primary Status: REG ER Study: Transvaginal w/Preg US Date of Exam: 08/14/24 Exam# [id number] Ordering Dr: Adalberto Limon DO PROCEDURE: TRANSVAGINAL W/PREG US 08/14/2024 REASON FOR EXAM: , VAGINAL BLEED, patient currently taking oral abortive medication for , patient was approximately 9 weeks at time of medication induction. COMPARISON: None. TECHNIQUE: Transvaginal and transabdominal pelvic ultrasound. Color and spectral doppler analysis of the ovaries. FINDINGS: Measurements: Uterus: 13.6 x 5.9 x 6.1 cm Endometrial Thickness: 1.5 cm Right Ovary: Nonvisualized. Left Ovary: 3.1 x 2.4 x 2.2 cm Uterus: Anteverted. No visualized gestational sac or yolk sac. The cervical os appears closed. Endometrium: Heterogeneous, compatible with patient history. Right ovary: Nonvisualized. Left ovary: Normal size and echotexture. Other adnexal findings: None. No adnexal mass. Cul-de-sac: No free intraperitoneal fluid identified. No tenderness. DOPPLER: Color Doppler: Normal color flow doppler signal at both ovaries. Spectral Doppler: Normal arterial inflow and venous outflow signal at both ovaries. US/Transvaginal w/Preg US IMPRESSION: 1. Normal pelvic ultrasound without intrauterine gestational sac or yolk sac to suggest viable . 2. Mildly heterogeneous endometrium, compatible with reported history of medical . Reading Location: [id number] CC: Dr. 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 [place], [place], [id number] EPI,SQUAMOUS 0-5 SEEN Normal 5-10 [facility] Comment on above: Order Comment: CLEAN CATCH Performed By: #### L 400.0001 #### [facility] [address] [place], [address] RBC 10-25 SEEN Normal 0-5 [facility] Comment on above: Order Comment: CLEAN CATCH Performed By: #### L 400.0001 #### [facility] [address] [place], [address] WBC 0-5 SEEN Normal 0-5 [facility] Comment on above: Order Comment: CLEAN CATCH Performed By: #### L 400.0001 #### [facility] [address] [place], [address] Mucus Ql (Urine sed) [address] [facility] Comment on above: Order Comment: CLEAN CATCH Performed By: #### L 400.0001 #### [facility] [address] [place], [address] Urine clarityOrdered By: Tad Limon on 08-14-2024 Clarity (U) Sl. Cloudy Clear [facility] Urine color determinationOrd ered By: Adalberto Limon on 08-14-2024 Color (U) Yellow Yellow [facility] Urine cultureOrdered By: Tad Limon on 08-14-2024 Bacteria identified Cx Nom (U) Escherichia coli Abnormal [facility] Urine glucose detectionOrder ed By: Adalberto Limon on 08-14-2024 Glucose Ql (U) Normal mg/dl Normal [facility] Urine leukocyte esterase det ection by dipstickOrdered By: Adalberto Limon on 08-14-2024 Leukocyte esterase Test strip Ql (U) 25 /ul High Negative [facility] Urine pHOrdered By: Adalberto Clarke on 08-14-2024 pH (U) 6.0 [pH] 5.0 - 8.0 [facility] Urine sediment bacteria coun t by microscopy (number/high power field)Ordered By: Adalberto Limon on 08-14-2024 Bacteria LM.HPF (Urine sed) [#/Area] 2 /[HPF] None Seen [facility] Urine specific gravity measu rementOrdered By: Adalberto Limon on 08-14-2024 Specific gravity (U) [Rel density] 1.015 1.002-1.030 [facility] Urine urobilinogen measureme ntOrdered By: [facility] on 08-14-2024 Urobilinogen Ql (U) Normal mg/dl Normal [facility] White blood cell (WBC) count Ordered By: [facility] on 08-14-2024 WBC (Bld) [#/Vol] 6.1 10*3/uL 4.4-11.0 [facility] White blood cell countOrdere d By: Adalberto KlTricia on 08-14-2024 White blood cell count 0-5 SEEN /hpf 0-5 [facility] hCG Titer Quant., Serumon HCG QUANT. 25860 mIU/mL High <9 non-preg [facility] Comment on above: Result Comment: Gest ational Age 0.2-1 Week: 5-50 mIU/mL 1-2 Weeks: 50-500 mIU/mL 2-3 Weeks: 100-5000 mIU/mL 3-4 Weeks: 500-10,000 mIU/mL 4-5 Weeks:1000-50,000 mIU/mL 5-6 Weeks: 10,000-100,000 mIU/mL 6-8 Weeks: 15,000-200,000 mIU/mL 2-3 Months:10,000-100,000 mIU/mL Performed By: #### L 500.2500, L700.8000, L100.0100 #### [facility] [address] [facility] [place], [address] Vital Signs Date Time Vital Sign Value Performing Clinician Mala wise 12-05-2024 22:09-0400 Body temperature 98 [degF] No Primary Care Physician [facility] 12-05-2024 22:09-0400 Diastolic blood pressure 88 mm[Hg] No Primary Care Physician [facility] 12-05-2024 22:09-0400 Heart rate 90 /min No Primary Care Physician [facility] 12-05-2024 22:09-0400 Respiratory rate 18 /min No Primary Care Physician [facility] 12-05-2024 22:09-0400 SaO2% (BldA) [Mass fraction] 100 % No Primary Care Physician [facility] 12-05-2024 22:09-0400 Systolic blood pressure 129 mm[Hg] No Primary Care Physician [facility] 12-05-2024 21:47-0400 Body mass index (BMI) [Ratio] 42.3 kg/m2 No Primary Care Physician [facility] 12-05-2024 21:47-0400 Body weight 122.4 kg No Primary Care Physician [facility] 12-05-2024 21:41-0400 Body height 170.18 cm No Primary Care Physician [facility] 12-04-2024 16:00-0400 Body temperature 98 [degF] No Primary Care Physician [facility] 12-04-2024 16:00-0400 Diastolic blood pressure 80 mm[Hg] No Primary Care Physician [facility] 12-04-2024 16:00-0400 Heart rate 80 /min No Primary Care Physician [facility] 12-04-2024 16:00-0400 Respiratory rate 16 /min No Primary Care Physician [facility] 12-04-2024 16:00-0400 SaO2% (BldA) [Mass fraction] 100 % No Primary Care Physician [facility] 12-04-2024 16:00-0400 Systolic blood pressure 123 mm[Hg] No Primary Care Physician [facility] 12-04-2024 15:21-0400 Body height 170.18 cm No Primary Care Physician [facility] 12-04-2024 15:21-0400 Body mass index (BMI) [Ratio] 41.8 kg/m2 No Primary Care Physician [facility] 12-04-2024 15:21-0400 Body weight 121.1 kg No Primary Care Physician [facility] 11-24-2024 11:07-0400 Body mass index (BMI) [Ratio] 43.37 kg/m2 Rai Gonsalez APRN.ORDER TRACER Work Phone: [facility] 11-24-2024 11:07-0400 Body weight 121.11 kg Rai Gonsalze BUCKLE SEWER.ORDER TRACER Work Phone: [facility] 10-20-2024 14:01-0400 Body height 167.1 cm Snehal Gypsum BUCKLE SEWER.ORDER TRACER Work Phone: [facility] 10-20-2024 14:01-0400 Body mass index (BMI) [Ratio] 42.72 kg/m2 Snehal Gabriela BUCKLE SEWER.ORDER TRACER Work Phone: [facility] 10-20-2024 14:01-0400 Body weight 119.3 kg Snehal Gypsum BUCKLE SEWER.ORDER TRACER Work Phone: [facility] 10-20-2024 14:01-0400 Diastolic blood pressure 78 mm[Hg] Snehal Gabriela BUCKLE SEWER.ORDER TRACER Work Phone: [facility] 10-20-2024 14:01-0400 Systolic blood pressure 124 mm[Hg] Snehal Gabriela BUCKLE SEWER.ORDER TRACER Work Phone: [facility] 08-14-2024 17:00-0400 Diastolic blood pressure 71 mm[Hg] No Primary Care Physician [facility] 08-14-2024 17:00-0400 Systolic blood pressure 108 mm[Hg] No Primary Care Physician [facility] 08-14-2024 16:54-0400 Heart rate 86 /min No Primary Care Physician [facility] 08-14-2024 16:54-0400 SaO2% (BldA) [Mass fraction] 100 % No Primary Care Physician [facility] 08-14-2024 16:53-0400 Body temperature 97 [degF] No Primary Care Physician [facility] 08-14-2024 16:53-0400 Respiratory rate 16 /min No Primary Care Physician [facility] 08-14-2024 13:52-0400 Body height 170.18 cm No Primary Care Physician [facility] Encounters Encounter Date Encounter Type Care Provider Facility Start: 12-05-2024 End: 12-05-2024 Emergency department patient visit No Primary Care Physician -Emergency Department Work Phone: Start: 12-04-2024 End: 12-04-2024 Emergency department patient visit No Primary Care Physician -Emergency Department Work Phone: Start: 11-24-2024 End: 11-24-2024 Admission to same day surgery center Rai Gonsalez BRITTNI Work Phone: General Surgery Comment on above: Encounter for weight management (Primary Dx); Abnormal weight gain; Class 3 severe obesity with body mass index (BMI) of 40.0 to 44.9 in adult, unspecified obesity type, unspecified whether serious comorbidity present (HCC); Suspected sleep apnea; Snoring; Binge eating Start: 11-24-2024 End: 11-24-2024 Telemedicine consultation with patient Rai Gonsalez BRITTNI Work Phone: General Surgery Start: 11-24-2024 End: 11-24-2024 ambulatory RAI GONSALEZ Facility:[facility] Start: 10-20-2024 End: 10-20-2024 [facility] Start: 10-20-2024 End: 10-20-2024 Patient encounter procedure Snehal Mac APRN.CNP Work Phone: OB/Gynecology Comment on above: Encounter for gyneco logical examination (general) (routine) without abnormal findings (Primary Dx); Screening for cervical cancer; Encounter for screening for human papillomavirus (HPV); Unintended weight gain; Abnormal uterine bleeding (AUB) Start: 10-20-2024 End: 10-20-2024 Patient encounter status Snehal Mac APRN.CNP Work Phone: [facility] Start: 10-20-2024 End: 10-20-2024 ambulatory SNEHAL [place] Facility:[facility] Start: 10-20-2024 Encounter for gynecological examination (general) (routine) without abnormal findings SNEHAL MAC [facility] Start: 08-14-2024 End: 08-14-2024 Emergency department patient visit No Primary Care Physician -Emergency Department Work Phone: Procedures Date Procedure Procedure Detail Performing Clinician Start: 08-14-2024 Urnls dip stick/tabl et reagent auto microscopy No Primary Care Physician Start: 08-14-2024 Transvaginal obstetr ic ultrasonography No Primary Care Physician Start: 08-14-2024 Urine culture No Primar y Care Physician Plan of Treatment Date Care Activity Detail Author Start: 05-28-2028 Urine microalbumin profile DTaP,Tdap,Td Vaccine (2 - Td or Tdap) [facility] Start: 10-21-2027 Screening for malignant neoplasm of cervix Cervical Cancer Screening [facility] Start: 02-08-2025 End: 02-08-2025 Patient encounter procedure 02/08/2025 1:00 PM EST Office Visit Family Medicine Adriana [address] [place] [address] Amilcar Felipe MD [address] [place], [place] [id number] EST Care [facility] Comment on above: EST Care Start: 01-25-2025 End: 01-25-2025 Follow-up encounter 01/25/2025 8:30 AM EST [facility] General Surgery [address] [place] [address] Rai Gonsalez APRN.[facility] [address] [place] [address] 2 month follow up--per Rai Gonsalez's staff message on 11/24/24 General Surgery Comment on above: 2 month follow up--per Rai Gonsalez's staff message on 11/24/24 Start: 12-05-2024 [facility] Start: 12-04-2024 [facility] Start: 12-01-2024 End: 12-01-2024 ambulatory 12/01/2024 8:30 AM EDT Results Only Adriana [facility]wn [facility] [address] [place] [address] [facility] Comment on above: Lab appt Start: 11-20-2024 Influenza vaccination Influenza Vaccine (#1) [facility] Start: 11-02-2024 End: 11-02-2024 Patient encounter procedure 11/02/2024 9:15 AM EDT Appointment Radiology [address] [place] [address] Abnormal uterine bleeding (AUB) [N93.9] Radiology Comment on above: Abnormal uterine bleeding (AUB) [N93.9] Start: 10-20-2024 End: 01-19-2025 Iron and Iron binding capacity panel - Serum or Plasma [facility] Comment on above: Expected: 10/20/2024, Expires: Start: 10-20-2024 End: 01-19-2025 THYROID PEROXIDASE ANTIBODY [facility] Comment on above: Expected: 10/20/2024, Expires: Start: 10-20-2024 End: 01-19-2025 Thyrotropin [Units/volume] in Serum or Plasma [facility] Comment on above: Expected: 10/20/2024, Expires: Start: 10-20-2024 End: 01-19-2025 Thyroxine (T4) free [Mass/volume] in Serum or Plasma [facility] Comment on above: Expected: 10/20/2024, Expires: Start: 10-20-2024 End: 01-19-2025 Triiodothyronine (T3) [Mass/volume] in Serum or Plasma [facility] Comment on above: Expected: 10/20/2024, Expires: Start: 08-14-2024 End: 08-14-2024 [facility] Start: 08-14-2024 Bacteria identified in Urine by Culture Urine Culture [facility] Start: 2024 HPV Vaccine (1 - 3-dose SCDM series) HPV Vaccine (1 - 3-dose SCDM series) [facility] Start: 2018 Screening for malignant neoplasm of cervix Cervical Cancer Screening [facility] Start: 2016 Hepatitis B Vaccine (1 of 3 - 19+ 3-dose series) Hepatitis B Vaccine (1 of 3 - 19+ 3-dose series) [facility] Start: 07-19-2015 Anxiety Screening Anxiety Screening [facility] Start: 07-19-2015 Depression Screening Depression Screening [facility] Start: 07-19-2015 Hepatitis C screening Hepatitis C Screening [facility] Choriogonadotropin ( test) [Presence] in Serum or Plasma [facility] End: 11-24-2025 HOME SLEEP APNEA TEST (HSAT) HOME SLEEP APNEA TEST (HSAT) Procedures Routine Suspected sleep apnea Snoring 1 Occurrences starting 11/24/2024 until 11/24/2025 [facility] Work Phone: Comment on above: 1 Occurrences starting 11/24/2024 until 11/24/2025 PAP TEST PAP TEST Lab Jere de leon Encounter for gynecological examination (general) (routine) without abnormal findings Screening for cervical cancer Encounter for screening for human papillomavirus (HPV) 10/20/2024 2:38 PM EDT [facility] Patient Education [facility] Work Phone: [facility] referral [facility] Work Phone: Urine culture [facility] End: 11-19-2025 US Pelvis transvaginal US FEMALE PELVIS TRANSVAG Radiology Routine Abnormal uterine bleeding (AUB) 1 Occurrences starting 10/20/2024 until 11/19/2025 [facility] Work Phone: Comment on above: 1 Occurrences starting 10/20/2024 until 11/19/2025 Immunizations Immunization Date Immunization Notes Care Provider Juan grayson 10-08-2023 varicella virus vaccine Chapo e Gabriela BUCKLE SEWER.ORDER TRACER Work Phone: [facility] 06-06-2021 COVID-19 vaccine (SAVANNA) Snehal Gabriela BUCKLE SEWER.ORDER TRACER Work Phone: [facility] 05-28-2018 tetanus toxoid, redu clyde diphtheria toxoid, and acellular pertussis vaccine, adsorbed Snehal Gabriela BUCKLE SEWER.ORDER TRACER Work Phone: [facility] Payers Date Payer Category Payer Medicaid [facility] ([place], [place]) [id number] 2024 Medicaid [id number] 2024 Self-pay Unknown [id number] Unknown [id number] Unknown [id number] Social History Date Type Detail Facility Start: 08-14-2024 End: 12-05-2024 Tobacco smoking status NEIS Smokes tobacco daily (finding) [facility] Start: 1995 Sex Assigned At Female [facility] Start: 10-20-2024 [facility] Start: 10-20-2024 Tobacco use and exposure Smokeless tobacco non-user [facility] Start: 10-20-2024 End: 11-24-2024 Alcoholic beverage intake Lifetime non-drinker (finding) [facility] Start: 10-20-2024 End: 11-24-2024 History of Social function [facility] Start: 10-20-2024 End: 11-24-2024 Tobacco use panel [facility] Start: 09-14-2024 National Score (1-100), lower number is lower risk 72 [facility] Start: 1995 Sex assigned at Not on file [facility] Start: 11-23-2024 Gender identity Identifies as female gender (finding) [facility] Clinical Notes 08-14-2024 to 11-24-2024 Addendum Note - Rai Gonsalez APRN.[facility] - 11/24/2024 11:32 AM EDTAddendum Note - Rai Gonsalez APRN.CNP - 11/24/2024 11:32 AM EDTPatient Instructions Note Date & Type Note Facility 11-24-2024 Note Addended by: RAI GONSALEZ on: 11/24/2024 11:32 AM Modules accepted: Orders [facility] 11-24-2024 Miscellaneous Notes Addended by: RAI GONSALEZ on: 11/24/2024 11:32 AM Modules accepted: Orders documented in this encounter [facility] 11-24-2024 Instructions Rai Gonsalez APRN.CNP - 11/24/2024 11:28 AM EDT Goals: -- Eating Plan: eMeter MATILDE - Log intake 3-4 days per week. Replace skipped meals with a protein supplement. Strive for at least 75 grams of protein daily. See below for a list of recommended protein meal replacement options. -- Follow The [place] MaxTraffic Plate eating method when preparing portions, see below -- Schedule with one of our [facility] dieticians to establish nutrition related goals. To schedule this appointment please call [phone] -- Activity: Apple Watch or FitBit tracker. Increase activity, as tolerated. Try to increase walking and strength and resistance exercises to preserve lean muscle mass. See the fitness resources I have provided for you below. -- Sleep: Complete home sleep study. To schedule this please call [phone] -- Stress: MATILDE for meditation - Mindful Moments by [facility] [employer]. [email or web address]/healt h/mental-[email or web address]/[email or web address]-wczimbqnzc-k wauzq-wtkmcaz-atet#our-picks -- Schedule with one of our [facility] clinical psychologists, if interested. To schedule this appointment please call [phone] -- Start Trulicity. See below for medication information and instructions. I have also provided a video link that demonstrates how to give yourself the injection. You will start on 0.75mg ONCE WEEKLY. After four weeks, if tolerating well, you can increase to the 1.5mg weekly dose. Follow up with me in 2-3 months. To schedule this please call [phone]. [email or web address].[facility].[place]/nut ritionsource/euyulrn-svlsuu-xgxq / [place] healthy Eating Plate: Make most of your meal vegetables and fruits - of your plate: Aim for color and variety, and remember that potatoes don t count as vegetables on the Healthy Eating Plate because of their negative impact on blood sugar. Go for whole grains - of your plate: Whole and intact grains--whole wheat, barley, wheat berries, quinoa, oats, brown rice, and foods made with them, such as whole wheat pasta--have a milder effect on blood sugar and insulin than white bread, white rice, and other refined grains. Protein power - of your plate: Fish, poultry, beans, and nuts are all healthy, versatile protein sources--they can be mixed into salads, and pair well with vegetables on a plate. Limit red meat, and avoid processed meats such as mosqueda and sausage. Healthy plant oils - in moderation: Choose healthy vegetable oils like olive, canola, soy, corn, sunflower, peanut, and others, and avoid partially hydrogenated oils, which contain unhealthy trans fats. Remember that low-fat does not mean healthy. Drink water, coffee, or tea: Skip sugary drinks, limit milk and dairy products to one to two servings per day, and limit juice to a small glass per day. Stay active: The red figure running across the Healthy Eating Plate s placemat is a reminder that staying active is also important in weight control. Recipe ideas https://www.[facility]/nut Intapp/qzojpsz-zltpnlrf-nz st/ Frozen Meals aim for 200-400 calories, 15-30 grams protein, 5+ grams fiber, < 50 grams Carbohydrate, <600 mg sodium Frozen Meals Calories Protein (grams) Carbs Frontera Bowls 240-320 12-12 33-47 Healthy Choice/Power Bowls 180-350 - 20-50 Viki's (V, GF) 280-400 - 20-50 Smart Made/Smart Ones 150-320 14- 16-50 Lean Cuisine 250-410 01-08 15-50 Eating Well 240-360 25-40 LUVO planted 260-430 01-08 16-55 Other Frozen meals: Kashi, Sweet Earth, Access Database Developer Todd's Reduced Guilt, Redd VINCENT's Delights, Dr. Bess's Protein Drinks Calories Protein (grams) Sugars (grams) EAS Advant Edge Carb Control 110 17 1 Isopure Clear Zero Carb 160 40 0 Muscle Milk light 100-160 15-20 0-1 Moya Okruga Core Power 170 26 5 Orgain Protein Shake* 150 26 2 Premier Protein 160 30 1 Evolve (Vegan)* 160 20 5 Other Protein Shakes: Pure Protein, Ensure High Protein; *Offers plant based, dairy free option Protein Powders Calories (per scoop) Protein (g) Sugars (g) Isopure Zero Carb & Unflavored 105 25 0 Electroslag Welding Machine Operator Whey Protein 100 18 3 Optimum Nutrition 100% whey 120-130 24 1-2 EAS 100% Whey or Soy 120 23 1 Genisoy Protein powder* 110 25 0 Quest 100 23 1 Castellon One Protein powder* 130 25 1 Orgain Protein Powder* 150-160 21 0-1 *Offers plant based, dairy free option Protein Bars Calories Protein (g) Sugars (g) Quest (GF) 190 20 0-1 Power Crunch 140-240 13-20 0-5 NuGo Slim (v) 180 17 1 Simply protein 150 15 1 Orgain Bar 140 10 4 Pure Protein 200 20 2 Think Thin (GF) 230 20 0-1 Ariel Bakery Paleo (GF) 180-190 20 2 Oh Yeah (one) (GF) 180-200 20 1 Oatmega 190 14 5 Other Protein bars: RX bar, Orgain, Fit Mary Lou, Protein One, Reid protein bar; *GF= Gluten-Free; V= vegan The Mediterranean heart-healthy diet 1) Eat an abundance of natural, whole plant foods, including fruits, vegetables, and salads. Try for seven to ten servings daily. 2) Include whole-grain, high-fiber breads and whole-grain pasta in your meals and snacks. 3) Keep saturated fat to a minimum: choose chicken, lean cuts of red meat, and nonfat dairy products, and use butter and cheese in moderation. 4) Incorporate fatty fish in your diet, especially salmon, sardines, trout, and tuna.These are good sources of omega-3 fatty acids. 5) Use olive oil as a source of monounsaturated fat. 6) Eat frequent servings of peas, beans, legumes, and nuts. 7) Drink low to moderate amounts of alcohol. Wine, especially red wine is a good choice. Consumption should be limited to one drink daily for women, two drinks daily Fitness apps [facility] club on TrevJuv Acessórios It s not always easy to motivate yourself to exercise, but the option to feel the burn and then directly transition into one of your favorite shows does have a certain appeal. And now, that s exactly what you can do: Just before the new year, Netflix members will be able to stream fitness content from [employer] [facility] for the first time ever. Ruthann Welcome to [employer], an independent global fitness resource. [employer] is a non-profit and also an ad-free and product placement-free website. Click here to get started. 7 Minute Workout: Professionally designed workouts that are short and effective. Workouts you can do anytime anywhere. 30 day Fitness Challenge: Workout at home, suited for anybody at any time. The 30 Day Fit Challenge Workout, designed by a professional fitness trainer, and is scientifically proven to help improve fitness and health. Also, this matilde can synchronize with burned calorie data on SingleFeed. Don't need to go to gym, just use your bodyweight and take a few minutes a day. Map My Fitness by Under Mckinney: Do you love a sense of community? Then you re going to love this matilde. Not only is it free, but you can interact with other members, share completed workouts, and receive/give encouragement from people on similar fitness journeys. Plus, you can join challenges and compete with other members. Freeletics: Customize your daily workouts and decide how you d like to achieve your goals whether it s with gym equipment or using your own body weight. This free matilde allows you to have access to and download free HIIT routines which you can even monitor through your Apple watch. After creating a profile, you can start your journey working out wherever, whenever! Flowdock Matilde: You may not have a fancy Flowdock bike or treadmill, but there is still a lot for you on the Flowdock Matilde. Normally $12.99, but they offer the first month free. Flowdock offers a variety of live fitness classes that you can filter by type, length, time and fitness level. You must register with a credit card, and will be charged after 30 days if you don't cancel. Javier it on the calendar or set an alert for the trial period is up. If you aren't good at remembering to cancel after trial periods, you may want to skip this one. Tale Me Storiese Training Club Matilde: Offering everything from bodyweight-only to full-equipment workouts for everyone at all fitness levels. There is a free plan with 200+ workouts, or a premium plan for $14.99/mo. Walkathome: The Walk at Home Matilde is a monthly calendar of workouts starting at $4.99 a month. Each month, receive a new set of workouts curated by the Walk at Home Team. It is made up of full-length titles, special edits, and exclusive content. You can swipe left or right and choose any workout you want, all you do is tap and walk. ?FitOn: Fitness Workout Plans Matilde: Take your FREE workout wherever you go with the [employer] matilde. There are live classes, on demand, challenges, and more. You can select time, intensity, target area and more. They'll even set up a fitness plan based on your goals and stats - with optional reminders so you can't just say that you forgot. BigBarn Fruit Grader: SO MANY FREE workouts on [employer]one[employer] Meder. You can narrow your search by choosing difficulty level, body focus, training type (HIIT, strength, pilates, cardio, etc), equipment available, length of time, and more! There are no excuses! You can ask for a 10 minute workout with no equipment, and you'll have 126 choices! Let's face it .you have 10 minutes these days. GoNoodle: Do kids need a break to get the wiggles our in between at-home school work or boredom? Turn on GoNoodle! The website and matilde provide movement and mindfulness videos created by child development experts to help get kids moving! You'll find creative movement, Kids Bop videos, kids Gideon, Think about It lessons, and more. We use the matilde on [employer] to stream the videos on our TV, and the kids LOVE dancing along. [employer] Team Body Project: On demand workouts at home. Enjoy over 400 HIIT cardio, resistance, circuit, Pilates and boxing workouts. Programs that guarantee safe, healthy and sustainable fat loss and muscle tone with workouts that are easy to follow and fun. Also an matilde available. Yoga with Mary: Her yoga is for all abilities, and is there is truly something for everyone. There are short and long options, yoga focusing on specific areas of the body, or that is for dealing with specific injuries or emotional needs. Pick any, or work your way through one of her 30 day programs. Exercising with Eren Muñoz: Inspiring the world to fitness in body, soul and spirit. There are workouts, stories of inspiration, courage and more. So subscribe now to be a better you. Burn Fat! Burn Calories! Lose weight! Face life challenges and be an overcomer. [employer] On[employer]: [employer] offers all types of workouts on [employer], including Gideon, HIIT, Standing [place], Core, and more. [employer]: This channel offers a HUGE library of fitness videos. You find all types of workouts, including no-equipment, weights, kettlebell, yoga, Pilates, kickboxing, cardio, and so much more. You can also join fitness challenges and use workout calendars that will tell you exactly what videos to do each day. Cosmic Kids Yoga: Fun themed yoga workouts for kids, including Frozen, Trolls, Star Wars, Animals, and kid-friendly resources for dealing with life situations and more! The workouts are around 30 minutes, and may hold school aged kids attention a little better. My 6 year old loves them, but my 6 year old only joins in occasionally. Adapted from: https://www.[email or web address]. om/lswl-vs-xpvt-workout-options/ Preserving Healthy Muscle during Weight Loss 1) persons with obesity have more muscle mass than those with normal weight but poor muscle quality; 2) weight loss reduces muscle mass without adversely affecting muscle strength and improves global physical function, most likely because of reduced fat mass; 3) adding exercise (endurance and resistance type) to a hypocaloric diet helps preserve muscle mass during weight loss, and resistance-type exercise also improves muscle strength; 4) high protein intake helps preserve lean body and muscle mass but does not improve muscle strength and could have adverse effects on metabolic function. We therefore conclude that weight-loss therapy, including a hypocaloric diet with adequate (but not excessive) protein intake (0.8 g/kg), and physical activity, particularly resistance exercise-type training, should be promoted to maintain muscle mass and improve muscle strength and physical function in persons with obesity. https://www.ncbi.nlm.nih.gov/pmc /articles/TXE4242714/ Beginners Guide to Resistance Training Maintain Your Muscle DULAGLUTIDE (Trulicity) - The medication comes in a once weekly, single-dose pen. - The most common adverse reactions reported in >=5% of Trulicity-treated patients in trials were nausea, diarrhea, vomiting, abdominal pain, decreased appetite, dyspepsia, and fatigue.The side effects are usually transient in nature. Please reach out for assistance in managing these symptoms if they persist and are bothersome. Side effects typically occur 1-3 days after the injection, when starting the medication, and with dose increases. With this in mind consider timing the injection like on a Wednesday night, so if you have side effects they will occur on the weekend versus while you are at work. -- We should have further discussions about taking this medication if you have a history of a pancreatitis, a disease called MEN2, or you or a family member has had medullary thyroid cancer. -- please inform me immediately if you are or plan to become . -- Although rare, there is an increased risk for inflammation of the pancreas (pancreatitis), gallbladder problems (including gallstones), low blood sugar (typically when combined with a medication called a sulfonurea), acute kidney injury (bwith nausea/vomiting and resulting dehydration), diabetic retinopathy (damage to the eye's retina), increased heart rate, and suicidal behavior or thinking. -- Please reach out if in-person pen training is needed. -- Keep medication refrigerated. It is good for 2 weeks out of the refrigerator as long as it had not been in high temperatures or direct sunlight. Instructions for Use Trulicity Patient Education How to use the pen: What is Trulicity & Easy To Use Pen Trulicity (dulaglutide) Full medication guide: Trulicity What Is Trulicity? Trulicity is a brand-name prescription drug that belongs to the drug class glucagon-like peptide-1 (GLP-1) agonists. Trulicity is available as a liquid solution self-injectable medication. It is a pre-filled, disposable, single-use injection pen. Can Trulicity Be Used for Weight Loss? While Trulicity is not a weight loss drug, Similar drugs in the same class of medication called GLP1's have recently been approved for weight loss by the FDA. These drugs are named Wegovy and Saxenda. The medication will be delivered as a once-weekly shot, in combination with diet and exercise. How Does Trulicity for Weight Loss Work? Trulicity is in a drug class called GLP-1 agonists that are used to control blood sugar, and can be taken to assist in weight loss. This drug works by - Slowing down how fast your stomach empties food - Blocking hormones that cause the liver to release sugar - Together, these combined actions cause the feeling of hunger to decrease, which leads to eating less, and finally, weight loss. How Long Does It Take for Trulicity to Work for Weight Loss? Results vary from person to person with Ozempic. Some people may have a quick initial weight drop; for others, it may take more time. Trulicity has been shown to help people lose weight in a safe, long-term, and healthy way. A [facility] doctor will help you with dosages of Trulicity for weight loss and might recommend slowly increasing dosage over time to maximize weight loss. The speed at which you lose weight is largely influenced by the amount of lifestyle changes you are able to make: there is no magic weight loss drug on the market. It s important to remember that weight loss takes time, and you ll have the best results if you use Trulicity in combination with exercise and a healthy diet. Trulicity for Weight Loss Dulaglutide: Patient drug information Access inMarket Online for additional drug information, tools, and databases. Copyright 6817-7567 [employer]. All rights reserved. (For additional information see Dulaglutide: Drug information) You must carefully read the Consumer Information Use and Disclaimer below in order to understand and correctly use this information. Brand Names: [place] Trulicity Brand Names: Adele Trulicity Warning Drugs like this one have been shown to cause thyroid cancer in some animals. It is not known if this drug may cause thyroid cancer in humans. Call your doctor right away if you have a neck mass, trouble breathing, trouble swallowing, or hoarseness that will not go away. Do not use this drug if you have a health problem called Multiple Endocrine Neoplasia syndrome type 2 (MEN 2), or if you or a family member have had thyroid cancer. What is this drug used for? It is used to lower blood sugar in patients with high blood sugar (diabetes). It is used to lower the chance of heart attack, stroke, and in some people. What do I need to tell my doctor BEFORE I take this drug? If you are allergic to this drug; any part of this drug; or any other drugs, foods, or substances. Tell your doctor about the allergy and what signs you had. If you have any of these health problems: Type 1 diabetes or stomach or bowel problems. If you have ever had pancreatitis. If the patient is a child. Do not give this drug to a child. This is not a list of all drugs or health problems that interact with this drug. Tell your doctor and pharmacist about all of your drugs (prescription or OTC, natural products, vitamins) and health problems. You must check to make sure that it is safe for you to take this drug with all of your drugs and health problems. Do not start, stop, or change the dose of any drug without checking with your doctor. What are some things I need to know or do while I take this drug? Tell all of your health care providers that you take this drug. This includes your doctors, nurses, pharmacists, and dentists. Follow the diet and workout plan that your doctor told you about. Wear disease medical alert ID (identification). Check your blood sugar as you have been told by your doctor. Have blood work checked as you have been told by the doctor. Talk with the doctor. Do not drive if your blood sugar has been low. There is a greater chance of you having a crash. It may be harder to control blood sugar during times of stress such as fever, infection, injury, or surgery. A change in physical activity, exercise, or diet may also affect blood sugar. Kidney problems have happened with drugs like this one. Sometimes, kidney problems have needed to be treated in the hospital. Dialysis has also been needed. Talk with your doctor. Tell your doctor if you have upset stomach, throwing up, diarrhea, or too much sweating. Losing too much fluid may raise your chance of kidney problems. If you are dehydrated, talk with your doctor. This drug may prevent other drugs taken by mouth from getting into the body. If you take other drugs by mouth, you may need to take them at some other time than this drug. Talk with your doctor. Do not share pen or cartridge devices with another person even if the needle has been changed. Sharing these devices may pass infections from one person to another. This includes infections you may not know you have. Tell your doctor if you are , plan on getting , or are breast-feeding. You will need to talk about the benefits and risks to you and the baby. What are some side effects that I need to call my doctor about right away? WARNING/CAUTION: Even though it may be rare, some people may have very bad and sometimes deadly side effects when taking a drug. Tell your doctor or get medical help right away if you have any of the following signs or symptoms that may be related to a very bad side effect: Signs of an allergic reaction, like rash; hives; itching; red, swollen, blistered, or peeling skin with or without fever; wheezing; tightness in the chest or throat; trouble breathing, swallowing, or talking; unusual hoarseness; or swelling of the mouth, face, lips, tongue, or throat. Signs of a pancreas problem (pancreatitis) like very bad stomach pain, very bad back pain, or very bad upset stomach or throwing up. Signs of kidney problems like unable to pass urine, change in how much urine is passed, blood in the urine, or a big weight gain. Change in eyesight. Low blood sugar can happen. The chance may be raised when this drug is used with other drugs for diabetes. Signs may be dizziness, headache, feeling sleepy or weak, shaking, fast heartbeat, confusion, hunger, or sweating. Call your doctor right away if you have any of these signs. Follow what you have been told to do for low blood sugar. This may include taking glucose tablets, liquid glucose, or some fruit juices. What are some other side effects of this drug? All drugs may cause side effects. However, many people have no side effects or only have minor side effects. Call your doctor or get medical help if any of these side effects or any other side effects bother you or do not go away: Not hungry. Feeling tired or weak. It is common to have diarrhea, upset stomach, throwing up, or stomach pain with this drug. Call your doctor if any of these side effects get very bad, bother you, or do not go away. These are not all of the side effects that may occur. If you have questions about side effects, call your doctor. Call your doctor for medical advice about side effects. You may report side effects to your national health agency. How is this drug best taken? Use this drug as ordered by your doctor. Read all information given to you. Follow all instructions closely. It is given as a shot into the fatty part of the skin on the top of the thigh, belly area, or upper arm. If you will be giving yourself the shot, your doctor or nurse will teach you how to give the shot. Be sure you know how to use this drug. Read the instructions for use that come with this drug. If there are no instructions for use or you have any questions about how to use this drug, talk with the doctor or pharmacist. Take with or without food. Drink lots of noncaffeine liquids unless told to drink less liquid by your doctor. Take the same day each week. Do not use if the solution is cloudy, leaking, or has particles. Do not use if solution changes color. Wash your hands before and after use. Move site where you give the shot each time. If you are also using insulin, you may inject this drug and the insulin in the same area of the body but not right next to each other. Do not mix this drug in the same syringe with insulin. Keep taking this drug as you have been told by your doctor or other health care provider, even if you feel well. Throw away needles in a needle/sharp disposal box. Do not reuse needles or other items. When the box is full, follow all local rules for getting rid of it. Talk with a doctor or pharmacist if you have any questions. What do I do if I miss a dose? Take a missed dose as soon as you think about it. If it is less than 3 days (72 hours) until your next dose, skip the missed dose. Take your next dose on your normal day. Do not take 2 doses at the same time or extra doses. How do I store and/or throw out this drug? Store in a refrigerator. Do not freeze. Do not use if it has been frozen. If needed, you may store at room temperature for up to 14 days. Write down the date you take this drug out of the refrigerator. If stored at room temperature and not used within 14 days, throw this drug away. Store in the original container to protect from light. Protect from heat. Keep all drugs in a safe place. Keep all drugs out of the reach of children and pets. Throw away unused or drugs. Do not flush down a toilet or pour down a drain unless you are told to do so. Check with your pharmacist if you have questions about the best way to throw out drugs. There may be drug take-back programs in your area. General drug facts If your symptoms or health problems do not get better or if they become worse, call your doctor. Do not share your drugs with others and do not take anyone else's drugs. Some drugs may have another patient information leaflet. If you have any questions about this drug, please talk with your doctor, nurse, pharmacist, or other health care provider. If you think there has been an overdose, call your poison control center or get medical care right away. Be ready to tell or show what was taken, how much, and when it happened. Last Reviewed [id number] Consumer Information Use and Disclaimer This generalized information is a limited summary of diagnosis, treatment, and/or medication information. It is not meant to be comprehensive and should be used as a tool to help the user understand and/or assess potential diagnostic and treatment options. It does NOT include all information about conditions, treatments, medications, side effects, or risks that may apply to a specific patient. It is not intended to be medical advice or a substitute for the medical advice, diagnosis, or treatment of a health care provider based on the health care provider's examination and assessment of a patient's specific and unique circumstances. Patients must speak with a health care provider for complete information about their health, medical questions, and treatment options, including any risks or benefits regarding use of medications. This information does not endorse any treatments or medications as safe, effective, or approved for treating a specific patient. [employer]. and its affiliates disclaim any warranty or liability relating to this information or the use thereof. The use of this information is governed by the Terms of Use, available at https://www.[employer].Kolorific/en /solutions/lexicomp/about/doris documented in this encounter [facility] 11-24-2024 Note HNO ID: [id number] Author: RAI GONSALEZ APRN.CNP Service: ? Author Type: Nurse Practitioner Type: Progress Notes Filed: 11/24/2024 11:30 Note Text: BMI Obesity Medicine Consult Distance Health Visit 11/24/24 I have communicated my name and active licensure. The patient's identity and physical location were verified at the time of this visit. Either the patient or their legal sales representative business courses has been informed of the risks and benefits of -- and alternatives to -- treatment through a remote evaluation and consents to proceed with the evaluation remotely. Patient Summary: Kaylee Richardson is a 29 year old female with obesity who presents to the [facility] for an initial evaluation of her obesity and is interested in behavioral , pharmacological, and non-surgical weight loss approaches. Primary reason for wanting obesity treatment : to become healthier Overall goal: 180 lbs Weight History: She reports a family history of obesity and early onset weight gain. She states her weight gain is related to the following factors, including unhealthy eating routines, binge eating, weight retention. Recalls being overweight in middle school. Gradual, progressive weight gain over the years. Recently moved from [place] to [place] in May 2024 and has gained 30+lbs since moving here. Lowest Weight Point: 210lbs Weight Graph: (please see graph scanned in chart) Obesigenic Medications: NO Diet: Quality of diet: 24hr recall suggests somewhat healthy diet. B: skips L: skips D: steak or salmon, veggies, potatoes Snacks: chips Gets home from work at 9pm and wants to snack before she goes to bed Beverages: soda (root beer- 2 cans daily), juice, Gatorade ETOH: denies alcohol use, intermittent marijuana use. Denies vaping or nicotine use Characterization of diet:Unstructured, unhealthy snacking, excessive cravings, evening snacking, increased consumption of sugar sweetened beverages, and skip meals. Collateral Specialist of impaired eating habits:excessive hunger, lack of satiety, mindlessness , boredom, emotion, and stress Eating Disorder +binge eating Diet History: Past weight loss attempts? self-directed. Exercise: Regular exercise: No formal regime, walks to and from work which is about [address] Strength/resistance exercise:No Barriers to regular exercise? 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 TRISH NO ; CPAP NO Quality:poor, Numerous awakenings:Sleep-wake cycle disruption:Yes Lately has not been going to sleep until 3 or 4 in the AM and wakes up at 8-9am STOP BANG 1. Snoring : Do you snore loudly (louder than talking, through closed doors)? YES 2. Tired : Do you often feel tired, fatigued, or sleepy during daytime? YES 3. Observed : Has anyone observed you stop breathing during sleep?NO 4. Blood Pressure: treated for high blood pressure?NO 5. BMI : BMI more than 35 kg/m2? YES 6. Age : Age over 50 yr old? NO 7. Neck circumference: Neck circumference greater than 40 cm?YES 8. Gender : Gender male? NO STOP BANG Score 4 , intermediate ??Stress: None , Cause:None Obesity Related Comorbidities: Prior Weight Loss Surgery:No There is no problem list on file for this patient. No history of NV, COPD, asthma, peptic ulcer dx, hyperlipidemia, gallstones, hypothyroidism, hypertension, cancer, DVT, PE, CVA, T2DM, gout, kidney stones, CKD and smoking history. PAST SURGICAL HISTORY Procedure Laterality Date SNGL Pt reported 2018 Obesity ROS/ FHx GEN: Fatigue:Yes CV: h/o palpitations/cardiac arrhythmia, CP:No PULM: Asthma:No GI: GERD:No; Gallstones: No; Fatty liver disease:No; H/o hernia:No MSK: Joint Pain:No : Nephrolithiasis:No; Stress incontinence:No Symptoms of PCOS(women):No No history of thyroid disorder,diabetes,cold intolerance,heat,intolerance,valarie ydypsia NEURO: Migraines/MICHAEL:No; H/o seizures: No Glaucoma:No; Cataracts No Symptoms of pseudotumor cerebri:No The physical systems reviewed reveal no pathological symptoms that are pertinent to this visit Family History Problem Relation Age of Onset No Known Problems Mother No Known Problems Father Diabetes Maternal Grandmother Diabetes Paternal Grandmother PREV: PAP UTD, Mammogram n/a and Colonoscopy n/a Social History SOCIAL HISTORY[1] 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: reviewed with the patient Appointment on 10/20/2024 Component Date Value Ref Range Status TSH 10/20/2024 1.610 0.270 - 4.200 mIU/L Final Free T4 10/20/2024 1.2 0.9 - 1.7 ng/dL Final T3 10/20/2024 138 79 - 165 ng/dL Final THYROID PEROXIDASE ANTIBODY 10/20/2024 5.1 <5.6 IU/mL Final WBC 10/20/2024 3.86 3.70 - 11.00 k/uL Final RBC 10/20/2024 3.93 3.90 - 5.20 m/uL Final Hemoglobin 10/20/2024 10.1 (L) 11.5 - 15.5 g/dL Final Hematocrit 10/20/2024 32.5 (L) 3 (more content not included)... [facility] 11-24-2024 History of Presen t illness Narrative Images from the original note were not included. BMI Obesity Medicine Consult Distance [facility] Visit 11/24/24 I have communicated my name and active licensure. The patient's identity and physical location were verified at the time of this visit. Either the patient or their legal sales representative business courses has been informed of the risks and benefits of -- and alternatives to -- treatment through a remote evaluation and consents to proceed with the evaluation remotely. Patient Summary: Kaylee Richardson is a 29 year old female with obesity who presents to the [facility] for an initial evaluation of her obesity and is interested in behavioral , pharmacological, and non-surgical weight loss approaches. Primary reason for wanting obesity treatment : to become healthier Overall goal: 180 lbs Weight History: She reports a family history of obesity and early onset weight gain. She states her weight gain is related to the following factors, including unhealthy eating routines, binge eating, weight retention. Recalls being overweight in middle school. Gradual, progressive weight gain over the years. Recently moved from [place] to [place] in May 2024 and has gained 30+lbs since moving here. Lowest Weight Point: 210lbs Weight Graph: (please see graph scanned in chart) Obesigenic Medications: NO Diet: Quality of diet: 24hr recall suggests somewhat healthy diet. B: skips L: skips D: steak or salmon, veggies, potatoes Snacks: chips Gets home from work at 9pm and wants to snack before she goes to bed Beverages: soda (root beer- 2 cans daily), juice, Gatorade ETOH: denies alcohol use, intermittent marijuana use. Denies vaping or nicotine use Characterization of diet:Unstructured, unhealthy snacking, excessive cravings, evening snacking, increased consumption of sugar sweetened beverages, and skip meals. Collateral Specialist of impaired eating habits:excessive hunger, lack of satiety, mindlessness , boredom, emotion, and stress Eating Disorder +binge eating Diet History: Past weight loss attempts? self-directed. Exercise: Regular exercise: No formal regime, walks to and from work which is about [address] Strength/resistance exercise:No Barriers to regular exercise? 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 TRISH NO ; CPAP NO Quality:poor, Numerous awakenings:Sleep-wake cycle disruption:Yes Lately has not been going to sleep until 3 or 4 in the AM and wakes up at 8-9am STOP BANG 1. Snoring : Do you snore loudly (louder than talking, through closed doors)? YES 2. Tired : Do you often feel tired, fatigued, or sleepy during daytime? YES 3. Observed : Has anyone observed you stop breathing during sleep?NO 4. Blood Pressure: treated for high blood pressure?NO 5. BMI : BMI more than 35 kg/m2? YES 6. Age : Age over 50 yr old? NO 7. Neck circumference: Neck circumference greater than 40 cm?YES 8. Gender : Gender male? NO STOP BANG Score 4 , intermediate ??Stress: None , Cause:None Obesity Related Comorbidities: Prior Weight Loss Surgery:No There is no problem list on file for this patient. No history of NV, COPD, asthma, peptic ulcer dx, hyperlipidemia, gallstones, hypothyroidism, hypertension, cancer, DVT, PE, CVA, T2DM, gout, kidney stones, CKD and smoking history. PAST SURGICAL HISTORY Procedure Laterality Date SNGL Pt reported 2019 Obesity ROS/ FHx GEN: Fatigue:Yes CV: h/o palpitations/cardiac arrhythmia, CP:No PULM: Asthma:No GI: GERD:No; Gallstones: No; Fatty liver disease:No; H/o hernia:No MSK: Joint Pain:No : Nephrolithiasis:No; Stress incontinence:No Symptoms of PCOS(women):No No history of thyroid disorder,diabetes,cold intolerance,heat,intolerance,valarie ydypsia NEURO: Migraines/MICHAEL:No; H/o seizures: No Glaucoma:No; Cataracts No Symptoms of pseudotumor cerebri:No The physical systems reviewed reveal no pathological symptoms that are pertinent to this visit Family History Problem Relation Age of Onset No Known Problems Mother No Known Problems Father Diabetes Maternal Grandmother Diabetes Paternal Grandmother PREV: PAP UTD, Mammogram n/a and Colonoscopy n/a Social History SOCIAL HISTORY[1] 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: reviewed with the patient Appointment on 10/20/2024 Component Date Value Ref Range Status TSH 10/20/2024 1.610 0.270 - 4.200 mIU/L Final Free T4 10/20/2024 1.2 0.9 - 1.7 ng/dL Final T3 10/20/2024 138 79 - 165 ng/dL Final THYROID PEROXIDASE ANTIBODY 10/20/2024 5.1 <5.6 IU/mL Final WBC 10/20/2024 3.86 3.70 - 11.00 k/uL Final RBC 10/20/2024 3.93 3.90 - 5.20 m/uL Final Hemoglobin 10/20/2024 10.1 (L) 11.5 - 15.5 g/dL Final Hematocrit 10/20/2024 32.5 (L) 36.0 - 46.0 % Final MCV 10/20/2024 82.7 80.0 - 100.0 fL Final MCH 10/20/2024 25.7 (L) 26.0 - 34.0 pg Final MCHC 10/20/2024 31.1 30.5 - 36.0 g/dL Final RDW-CV 10/20/2024 16.0 (H) 11.5 - 15.0 % Final Platelet Count 10/20/2024 343 150 - 400 k/uL Final MPV 10/20/2024 11.1 9.0 - 12.7 fL Final Neutrophils % 10/20/2024 55.8 % Final Abs Neut 10/20/2024 2.15 1.45 - 7.50 k/uL Final Lymphocytes % 10/20/2024 26.9 % Final Abs Lymph 10/20/2024 1.04 1.00 - 4.00 k/uL Final Monocytes % 10/20/2024 8.0 % Final Abs Snyder 10/20/2024 0.31 <0.87 k/uL Final Eosinophils % 10/20/2024 8.5 % Final Abs Eosin 10/20/2024 0.33 <0.46 k/uL Final Basophils % 10/20/2024 0.5 % Final Abs Baso 10/20/2024 <0.03 <0.11 k/uL Final Immature Granulocytes % 10/20/2024 0.3 % Final Abs Immature Gran 10/20/2024 <0.03 <0.10 k/uL Final NRBC 10/20/2024 0.0 /100 WBC Final Absolute nRBC 10/20/2024 <0.01 <0.01 k/uL Final Diff Type 10/20/2024 Auto Final Protein, Total 10/20/2024 7.8 6.3 - 8.0 g/dL Final Albumin 10/20/2024 4.1 3.9 - 4.9 g/dL Final Calcium, Total 10/20/2024 9.2 8.5 - 10.2 mg/dL Final Bilirubin, Total 10/20/2024 0.6 0.2 - 1.3 mg/dL Final Alkaline Phosphatase 10/20/2024 78 34 - 123 U/L Final AST 10/20/2024 10 (L) 13 - 35 U/L Final ALT 10/20/2024 6 (L) 7 - 38 U/L Final Glucose 10/20/2024 99 74 - 99 mg/dL Final BUN 10/20/2024 11 7 - 21 mg/dL Final Creatinine 10/20/2024 0.69 0.58 - 0.96 mg/dL Final Sodium 10/20/2024 136 136 - 144 mmol/L Final Potassium 10/20/2024 4.2 3.7 - 5.1 mmol/L Final Chloride 10/20/2024 103 98 - 107 mmol/L Final CO2 10/20/2024 23 22 - 30 mmol/L Final Anion Gap 10/20/2024 10 8 - 15 mmol/L Final Estimated Glomerular Filtration Ra* 10/20/2024 122 >=60 mL/min/1.73m Final Iron 10/20/2024 48 41 - 186 ug/dL Final TIBC 10/20/2024 407 (H) 232 - 386 ug/dL Final Transferrin Saturation 10/20/2024 11.8 (L) 15.0 - 57.0 % Final Office Visit on 10/20/2024 Component Date Value Ref Range Status Case Report 10/20/2024 Final Value:Gynecologic Cytology Report Case: [id number] Authorizing Provider: Snehal Mac APRN.ORDER TRACER Collected: 10/20/2024 02:38 PM Ordering Location: OB/Gynecology Received: 10/20/2024 04:30 PM First Screen: Shabnam Mayorga, CT, ASCP Specimen: Pap Test, ThinPrep, Cervix Specimen Adequacy 10/20/2024 Satisfactory for interpretation. Transformation zone present Final Interpretation 10/20/2024 Negative for intraepithelial lesion or malignancy. Final Other Interpretation(s) 10/20/2024 Predominance of coccobacilli consistent with shift in vaginal kaz. Final Clinical History 10/20/2024 Routine Exam Final LMP 10/20/2024 Final Value:10/08/2024 Pap Disclaimer 10/20/2024 Final Value:The Pap Smear is a screening test for cervical cancer. False negative results occur with all screening tests, emphasizing the need for rescreening at recommended intervals, and clinical correlation. PAP Product Design Engineer Comment 10/20/2024 Final Value:This specimen has been analyzed by the FDA-approved [employer] red truck driving [employer] System, which uses digital imaging and an enhanced artificial intelligence image analysis algorithm to identify rahman of interest on the microscopic slide, to assist the sheetmetal patternmaker and pathologist in evaluating cells on ThinPrep Pap tests. Following analysis, rahman of interest on the microscopic slide selected by the algorithm are reviewed by a sheetmetal patternmaker. If a sample requires hierarchical review, the pathologist will review the same rahman of interest selected by the algorithm prior to final interpretation. Performing Lab 10/20/2024 Final Value:Technical component, pharm tech screening performed at: [facility], [address] [place] [address] CLIA: [id number] Diagnostic interpretation performed at: [facility], [address] [place] [address] CLIA# [id number] Hand Tennis Ball Coverer: Amarjit Parish MD Impression: Kaylee Richardson is a 29 year old female with Class III obesity (Body mass index is 43.37 kg/m .) who has early onset obesity with gradual weight gain despite several weight loss attempts. The causes of her obesity are multifactorial, biological, psychological and social and environmental. Specific factors include a genetic component related to a strong family of obesity, increased consumption of high calorie/process foods, irregular eating patterns , suboptimal physical activity, inadequate sleep duration, poor sleep quality, circadian disruption, and post weight retention. She has few weight-related medical comorbidities which increase her cardiovascular mortality risk. There are additional metabolic obesity complications including LIGIA. Other medical conditions as above. Regarding her lifestyle, as above, she has several behavioral contributors; her physical activity is regular but not at the recommended levels of 200min per week. Overall, it is clear that her quality of life is moderately compromised by her weight. It is likely a combination of weight loss therapies will be needed. She appears motivated today. -- Will update lab work to screen for obesity related comorbidities / for medication management. All other Lab work up to date and reviewed. - In discussion of anti-obesity medication options: Incretin agents such as GLP-1 RA/GIP [Mounjaro, Ozempic, Wegovy, Zepbound] are reasonable as she denies any personal or family history of medullary thyroid cancer or MEN 2, pancreatitis, cholecystitis, suicide attempt, or significant thyroid nodules. However, can be limited by insurance coverage/cost. We reviewed DM approved GLP-1's require type 2 diabetes diagnosis. Obesity approved GLP-1s may be listed as formulary exclusions. Phentermine is reasonable as she does not have history of hyperthyroidism, tachyarrhythmia, cardiac history, stroke/TIA, panic disorder, bipolar or mood disorders, insomnia, or seizure disorder. Topiramate is reasonable as she does not have history of mood disorder, seizure disorder, renal dysfunction, glaucoma, or kidney stones. Bupropion/naltrexone is reasonable as she does not have history of seizures, glaucoma, uncontrolled hypertension, anorexia nervosa, bulimia, drug or opioid use, alcohol use, or mood/bipolar disorder. Metformin is reasonable as labs were reviewed and she has no significant renal/liver dysfunction or metabolic acidosis. - Shared decision made to start Trulicity. We discussed medication instructions, proper administration, potential side effects, cautions, and average potential weight loss in detail. Provided written medication information via [employer] and AVS. Patient will contact office if any issues with insurance coverage or cost. - Reviewed need for contraception with AOMs, patient is not and aware of this contraindication. - Advised to monitor BP and HR while initiating this medication provide updated readings at follow up visits. Instructed to hold medication and notify office if blood pressure is >140/90 or heart rate is >100 bpm. Provided written instructions on how to monitor this at home. - Additional agents that may be useful in the future are GLP-1/GIP, phentermine/topiramate, bupropion/naltrexone, and metformin. - There are no agents that are currently contraindicated in this case. Plan: -- Based on the severity and resistance of the obesity to more conservative weight loss approaches, I believe a combination of behavioral and pharmacological intervention is the best and most appropriate superintendent terminal therapeutic option. -- We discussed several strategies to track food intake and increase mindfulness around eating. She was counseled on Food records, Meal replacements, Time restricted feeding, Intermittent fasting, and Low carbohydrate diet -- Encouraged the patient to improve her physical activity. Although cardiovascular exercise is most beneficial for weight loss initially, we discussed healthy muscle from a combination of resistance training and cardiovascular exercise is the best mcfp plan. An overall goal of 200 minutes per week of exercise has been effective in weight loss and maintenance. Goals: -- Eating Plan: eMeter MATILDE - Log intake 3-4 days per week. Replace skipped meals with a protein supplement. Strive for at least 75 grams of protein daily. -- Follow The [employer] Healthy Plate eating method when preparing portions -- Schedule with one of our [facility] dieticians to establish nutrition related goals. -- Activity: Apple Watch or FitBit tracker. Increase activity to the recommended 150-200 minute weekly goal. Try to increase walking and strength and resistance exercises to preserve lean muscle mass. Sleep: Complete sleep study to rule out TRISH given intermediate risk -- Stress: MATILDE for meditation - Mindful Moments by [facility] [employer]. [email or web address] [email or web address]-picks -- Schedule with one of our BMI clinical psychologists due to concern of binge eating behaviors -- Start Trulicity. You will start on 0.75mg ONCE WEEKLY x 4 weeks. After four weeks, if tolerating well, you can increase to the 1.5mg weekly dose x4 weeks. -- follow-up visit for management of above interventions in 2-3 months I spent a total of 60 minutes on the date of the service which included preparing to see the patient, completing clinical documentation, obtaining and/or reviewing separately obtained history, counseling and educating the patient/family/caregiver, ordering medications, tests, or procedures, independently interpreting results (not separately reported), communicating results to the patient/family/caregiver, and care coordination (not separately reported). Rai Gonsalez APRN.CNP [1] Social History Tobacco Use Smoking status: Never Smokeless tobacco: Never Vaping Use Vaping status: Never Used Substance Use Topics Alcohol use: Never Drug use: Not Currently Types: Marijuana documented in this encounter [facility] 10-20-2024 Note HNO ID: [id number] Author: SNEHAL MAC APRN.CNP Service: ? Author Type: Nurse Practitioner Type: Progress Notes Filed: 10/20/2024 14:36 Note Text: Patient declined obgyn nurse. Kaylee is a 29 year old who presents for an annual gynecologic exam with complaints, weight gain x6 months.. Irregular bleeding, termination of 2 months ago Moved to [place] from [place] recently LMP: 10/08/2024 Menses: having bleeding every 2-3 days, will stop for a few days and then start up, heavy flow Contraception: None HPV vaccine: No Last pap smear: unknown HPV: NA History of abnormal pap: No Last mammogram: never Sexually active: not currently Patient concerns for STD exposure: No. OB History No obstetric history on file. 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 No pertinent past medical history. PAST SURGICAL HISTORY Procedure Laterality Date SNGL Pt reported 2019 FAMILY HISTORY Problem Relation Age of Onset No Known Problems Mother No Known Problems Father Diabetes Maternal Grandmother Diabetes Paternal Grandmother SOCIAL HISTORY Social History Tobacco Use Smoking status: Never Smokeless tobacco: Never Vaping Use Vaping status: Never Used Substance Use Topics Alcohol use: Never Drug use: Not Currently Types: Marijuana REVIEW OF SYSTEMS Abdomen: + nausea, vomiting, constipation. + Indigestion Bladder: No dysuria, gross hematuria, urinary frequency, urinary urgency, or incontinence. Breast: No breast lumps, nipple d/c, overlying skin changes, redness or skin retraction. Allergies and current medication updated:Yes SENSITIVE EXAM: The sensitive examination was discussed with the Patient or Patient's Authorized High Speed Printer Operator. As applicable, any other physician, advance practice provider, medical student, or other health professional student that will be observing or involved in the sensitive examination for educational or training purposes was discussed with the Patient or Authorized High Speed Printer Operator. The Patient or Authorized High Speed Printer Operator has agreed to proceed with the sensitive examination. (Sensitive examination includes inspection and/or palpation of the breasts, pelvis, prostate and anorectal regions). EXAM: BP 124/78 Ht 5' 5.787 (1.67m) Wt 263 lb (119.3kg) LMP 10/08/2024 BMI 42.72 kg/(m2). GENERAL: pleasant, female in no apparent distress HEENT: Normocephalic, atraumatic, mucus membranes moist, and no lesions DERMATOLOGY: Normal, without lesions, non-icteric, and non-hirsute BREAST: soft, non-tender, symmetric, no dominant mass, normal nipple-areolar complex, no lymphadenopathy, and no nipple discharge CHEST: Normal inspiratory effort ABDOMEN: soft, non-tender, and no masses PELVIC: external genitalia normal, normal Bartholin's glands, urethra, Dotsero's glands, no vulvar lesions, no cervical lesions, good vaginal support, physiologic discharge present, normal appearing perineal body and perianal region BIMANUAL: uterus normal size, shape and consistency, no adnexal masses, and non-tender RECTOVAGINAL: deferred. NEURO: alert and oriented x3,exam grossly non-focal EXTREMITIES: normal ASSESSMENT/PLAN: 1. Encounter for gynecological examination (general) (routine) without abnormal findings - ICD9: V72.31, ICD10: Z01.419 (primary diagnosis) - Completed pap test and breast exam - Encouraged monthly BSE - Follow up for annual exam in one year. - PAP TEST 2. Screening for cervical cancer - ICD9: V76.2, ICD10: Z12.4 - PAP TEST 3. Encounter for screening for human papillomavirus (HPV) - ICD9: V73.81, ICD10: Z11.51 - PAP TEST 4. Unintended weight gain - ICD9: 783.1, ICD10: R63.5 - THYROID STIMULATING HORMONE - T4 FREE/FREE THYROXINE - T3 - THYROID PEROXIDASE ANTIBODY - COMPLETE BLOOD COUNT AND DIFFERENTIAL - COMPREHENSIVE METABOLIC PANEL - IRON AND TIBC 5. Abnormal uterine bleeding (AUB) - ICD9: 626.9, ICD10: N93.9 - US FEMALE PELVIS TRANSVAG - THYROID STIMULATING HORMONE - T4 FREE/FREE THYROXINE - T3 - THYROID PEROXIDASE ANTIBODY - COMPLETE BLOOD COUNT AND DIFFERENTIAL - COMPREHENSIVE METABOLIC PANEL - IRON AND TIBC Snehal Mac, BUCKLE SEWER.ORDER TRACER Medical Decision Making: Problems: Low: Acute, uncomplicated illness or injury Data: Unique test(s) ordered: 3+ Risk: Low: Low risk from testing/treatment Medical Decision Making Level: 3 - Low [facility] 10-20-2024 History of Presen t illness Narrative Patient declined obgyn nurse. Kaylee is a 29 year old who presents for an annual gynecologic exam with complaints, weight gain x6 months.. Irregular bleeding, termination of 2 months ago Moved to [place] from [place] recently LMP: 10/08/2024 Menses: having bleeding every 2-3 days, will stop for a few days and then start up, heavy flow Contraception: None HPV vaccine: No Last pap smear: unknown HPV: NA History of abnormal pap: No Last mammogram: never Sexually active: not currently Patient concerns for STD exposure: No. OB History No obstetric history on file. 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 No pertinent past medical history. PAST SURGICAL HISTORY Procedure Laterality Date SNGL Pt reported 2018 FAMILY HISTORY Problem Relation Age of Onset No Known Problems Mother No Known Problems Father Diabetes Maternal Grandmother Diabetes Paternal Grandmother SOCIAL HISTORY Social History Tobacco Use Smoking status: Never Smokeless tobacco: Never Vaping Use Vaping status: Never Used Substance Use Topics Alcohol use: Never Drug use: Not Currently Types: Marijuana REVIEW OF SYSTEMS Abdomen: + nausea, vomiting, constipation. + Indigestion Bladder: No dysuria, gross hematuria, urinary frequency, urinary urgency, or incontinence. Breast: No breast lumps, nipple d/c, overlying skin changes, redness or skin retraction. Allergies and current medication updated:Yes SENSITIVE EXAM: The sensitive examination was discussed with the Patient or Patient's Authorized High Speed Printer Operator. As applicable, any other physician, advance practice provider, medical student, or other health professional student that will be observing or involved in the sensitive examination for educational or training purposes was discussed with the Patient or Authorized High Speed Printer Operator. The Patient or Authorized High Speed Printer Operator has agreed to proceed with the sensitive examination. (Sensitive examination includes inspection and/or palpation of the breasts, pelvis, prostate and anorectal regions). EXAM: BP 124/78 Ht 5' 5.787 (1.67m) Wt 263 lb (119.3kg) LMP 10/08/2024 BMI 42.72 kg/(m^2). GENERAL: pleasant, female in no apparent distress HEENT: Normocephalic, atraumatic, mucus membranes moist, and no lesions DERMATOLOGY: Normal, without lesions, non-icteric, and non-hirsute BREAST: soft, non-tender, symmetric, no dominant mass, normal nipple-areolar complex, no lymphadenopathy, and no nipple discharge CHEST: Normal inspiratory effort ABDOMEN: soft, non-tender, and no masses PELVIC: external genitalia normal, normal Bartholin's glands, urethra, Dotsero's glands, no vulvar lesions, no cervical lesions, good vaginal support, physiologic discharge present, normal appearing perineal body and perianal region BIMANUAL: uterus normal size, shape and consistency, no adnexal masses, and non-tender RECTOVAGINAL: deferred. NEURO: alert and oriented x3,exam grossly non-focal EXTREMITIES: normal ASSESSMENT/PLAN: 1. Encounter for gynecological examination (general) (routine) without abnormal findings - ICD9: V72.31, ICD10: Z01.419 (primary diagnosis) - Completed pap test and breast exam - Encouraged monthly BSE - Follow up for annual exam in one year. - PAP TEST 2. Screening for cervical cancer - ICD9: V76.2, ICD10: Z12.4 - PAP TEST 3. Encounter for screening for human papillomavirus (HPV) - ICD9: V73.81, ICD10: Z11.51 - PAP TEST 4. Unintended weight gain - ICD9: 783.1, ICD10: R63.5 - THYROID STIMULATING HORMONE - T4 FREE/FREE THYROXINE - T3 - THYROID PEROXIDASE ANTIBODY - COMPLETE BLOOD COUNT AND DIFFERENTIAL - COMPREHENSIVE METABOLIC PANEL - IRON AND TIBC 5. Abnormal uterine bleeding (AUB) - ICD9: 626.9, ICD10: N93.9 - US FEMALE PELVIS TRANSVAG - THYROID STIMULATING HORMONE - T4 FREE/FREE THYROXINE - T3 - THYROID PEROXIDASE ANTIBODY - COMPLETE BLOOD COUNT AND DIFFERENTIAL - COMPREHENSIVE METABOLIC PANEL - IRON AND TIBC Snehal Mac APRN.CNP Medical Decision Making: Problems: Low: Acute, uncomplicated illness or injury Data: Unique test(s) ordered: 3+ Risk: Low: Low risk from testing/treatment Medical Decision Making Level: 3 - Low documented in this encounter [facility] 08-14-2024 Discharge summary [facility] 08-14-2024 Radiology Diagnostic study note [facility] Imaging Services [address] [place], [place] [id number] Transvaginal w/Preg US MR#: [id number] Acct: [id number] Name: DYLANKAYLEE MICHELLE Rep #: [id number] : 1995 F 29 From: Alexandra Montiel MD PCP: Care Physician,No Primary Status: REG ER Study:Transvaginal w/Preg US Date of Exam: 08/14/24 Exam# [id number] Ordering Dr: Adalberto Ramirez DO PROCEDURE: TRANSVAGINAL W/PREG US 08/14/2024 REASON FOR EXAM: , VAGINAL BLEED, patient currently taking oral abortive medication for , patient was approximately 9 weeks at time of medication induction. COMPARISON: None. TECHNIQUE: Transvaginal and transabdominal pelvic ultrasound. Color and spectral doppler analysis of the ovaries. FINDINGS: Measurements: Uterus: 13.6 x 5.9 x 6.1 cm Endometrial Thickness: 1.5 cm Right Ovary: Nonvisualized. Left Ovary: 3.1 x 2.4 x 2.2 cm Uterus: Anteverted. No visualized gestational sac or yolk sac. The cervical osappears closed. Endometrium: Heterogeneous, compatible with patient history. Right ovary: Nonvisualized. Left ovary: Normal size and echotexture. Other adnexal findings: None. No adnexal mass. Cul-de-sac: No free intraperitoneal fluid identified. No tenderness. DOPPLER: Color Doppler: Normal color flow doppler signal at both ovaries. Spectral Doppler: Normal arterial inflow and venous outflow signal at both ovaries. US/Transvaginal w/Preg US IMPRESSION: 1. Normal pelvic ultrasound without intrauterine gestational sac or yolk sac to suggest viable . 2. Mildly heterogeneous endometrium, compatible with reported history of medicalabortion. Reading Location: [id number] CC: Dr. Adalberto Limon DO; No Primary Care Physician ~ Lasting Machine Operator Hand Method: Signed [facility] 08-14-2024 Discharge summary Note Date/Time August 14, 2024 5:12pm [facility] Medical Records Department [address] [place] [address] Emergency Department Summary 08/14/24 MR#: [id number] Acct: [id number] Name: KAYLEE RICHARDSON Rep #:[id number] : 1995 29 From: Adalberto dunn DO PCP: Care Physician,No Primary Status :REG ER Location: ED HPI HPI - Female History of Present Illness Chief Complaint: Vag Bleeding Narrative Narrative: Chief complaint and HPI: Vaginal bleeding. 29-year-old female who is G5, P2, A2-1 miscarriage/1 elective presents for evaluation of vaginal bleeding. Patient states she recently moved here from [place]. Does not follow an ACTUARY. States her last menstrual cycle was in May. Patient states she isabout 9 weeks . Has not had an official ultrasound or followed with ACTUARY. Patient states that she went on the Internet with a website called [employer] and ordered medication to have an elective . She took Mifepristone and 4 pills of Misoprostol approximately 24 hours ago. Patient states today she started to have vaginal bleeding in which she is passing multiple large clots. Associated symptom is abdominal cramping which feels likecontractions, nausea, and lightheadedness. She denies any fever, chills, shortness of breath, chest pain, dysuria, diarrhea. Review of systems: See HPI Medications: As listed on the chart Allergies: As listed on the chart PFSH: Per chart Vital signs: As listed on the chart. Reviewed. Physical exam: Gen: A&O x3, uncomfortable secondary to pain Head: Normocephalic, atraumatic Eyes: No sclera icterus, conjunctiva clear ENT: Mildly dry mucous membranes CV: RRR, no murmurs, no peripheral edema Resp: Lungs CTA BL, no w/r/c GI: Abd soft, non-distended, non-tender to palpation although endorsing pelvic cramping, no r/r/g : No CVA tenderness Pelvic: Normal external genitalia. No lesions, masses, or rashes appreciated. Active vaginal bleeding with a large clot. Cervix unable to be visualized due to vaginal bleeding. Musc: Full ROM, no deformity Skin: Warm, dry Neuro: Alert, oriented, grossly intact, sensation intact Psych: Cooperative, appropriate mood and affect PFSH PFSH Medical History no medical history Home Medications ?Medication ?Instructions ?Recorded ?Last Taken ?Type cephalexin 500 mg capsule 500 mg PO BID 7 days #14 cap s 08/14/24 Unknown Rx Allergy/AdvReac Type Severity Reaction Status Date / Time iodine Allergy Mild Rash Verified 08/14/24 13:52 Penicillins Allergy Mild RASH Verified 08/14/24 13:52 Family History no significant family his Surgical History no surgical history Social History Smoking Status: Current every day smoker tobacco type: e-cigarettes EXAM Physical Exam Const Vital Signs: 08/14/24 13:52 08/14/24 15:51 08/14/24 16:53 Temperature 97 F L 97 F L Temperature Source Temporal Pulse Rate 92 90 86 Respiratory Rate 18 16 Blood Pressure 120/74 126/77 H 103/88 H Blood Pressure Mean 89 93 93 Pulse Ox 100 100 100 Oxygen Delivery Method Room Air Room Air 08/14/24 16:54 08/14/24 17:00 Temperature Temperature Source Pulse Rate 86 Respiratory Rate Blood Pressure 103/88 H 108/71 Blood Pressure Mean 93 83 Pulse Ox 100 Oxygen Delivery Method Room Air MDM MDM MDM Narrative Medical decision making narrative: 29-year-old female who is G5, P2, A2-1 miscarriage/1 elective presentsfor evaluation of vaginal bleeding. Patient reports she is 9 weeks andabout pills over the Internet. She took Mifepristone and 4 pills of Misoprostol approximately 24 hours ago. Today started having vaginal bleeding in which she is passing multiple large clots. Endorsing contractions, nausea, lightheadedness. On physical exam patient has vaginal bleeding with a large clot. I am unable to visualize cervix. Differential diagnosis includes but is not limited to complete , incomplete , ruptured ectopic , UTI, anemia, dehydration. Laboratory workup including vaginal ultrasound. Given patient's symptoms as well as the reported amount of bleeding, [facility] on-call Dr. Heredia was contacted early to be made aware of the patient incase exam worsens or changes. He agrees with the workup that was ordered. Vitals are stable here in the emergency department. Morphine, Zofran,NS bolus ordered. CBC without leukocytosis. Patient has anemia with hemoglobinat 10. States she has history of anemia however does not know her baseline. Platelets unremarkable. BMP unremarkable without SIL or significant electrolyteabnormality. Lactic acid unremarkable. Beta-hCG 17,903. Patient is A positive. Pelvic ultrasound pending at this time. On reevaluation, patient states her symptoms have improved. Her abdominal pain has completely resolved. Her vaginal bleeding has slowed down and no longer passing clots. She is able to ambulate to the bathroom without lightheadedness. Nausea is resolved. Pelvicultrasound shows normal pelvic ultrasound without intrauterine gestational sac or yolk sac such as viable . Mild heterogeneous endometrium, compatible with reported history of medical . The cervical os appears closed. Dr. Heredia called me to obtain ultrasound results before I could call him in consult. He was updated of the findings. He was updated of the patient's clinical improvement. Plan is to discharge home and follow-up outpatient in their office. Repeat beta-hCG in 3 days. UA is positive for UTI. Urine culture sent. Rocephin ordered. Patient will be placed on a 7-day course of Keflex. This is easily tolerable. She does have a rash to penicillins however cross reactivity is low. She was made aware of this and confirmed understanding. She accepted the risks of hives. Patient was updated that she needs to follow-up with [facility]. She is given an order to have her betahCG repeated in 3 days. She was educated on strict return precautions such as recurrent bleeding, cramping, lightheadedness. She confirmed understanding. Currently asymptomatic. Minimal vaginal bleeding. Vital stable. Patient will be discharged home. Impression: 1. Complete , elective via medication online 2. Chronic anemia 3. UTI Lab Data Labs: Laboratory Results - last 24 hr 08/14/24 08/14/24 08/14/24 14:15 15:50 15:55 WBC 6.1 RBC 3.49 L Hgb 10.0 L Hct 31.1 L MCV 89.1 MCH 28.7 MCHC 32.2 RDW Std Deviation 45.2 H RDW Coeff of Rayna 14.5 Plt Count 198 MPV 10.8 Immature Gran % (Auto) 0.500 Neut % (Auto) 66.3 Lymph % (Auto) 20.4 Snyder % (Auto) 6.0 Eos % (Auto) 6.5 H Baso % (Auto) 0.3 Absolute Neuts (auto) 4.1 Absolute Lymphs (auto) 1.25 Nucleated RBC % 0 Sodium 133 Potassium 3.7 Chloride 100 Carbon Dioxide 22.0 Anion Gap 12 BUN 8 Creatinine 0.60 L Est GFR (MDRD) Non-Af 126 BUN/Creatinine Ratio 12.6 Glucose 101 H Lactic Acid 1.1 Calcium 8.8 HCG, Quant 64751 H Serum , Qual Cancelled Urine Color Yellow Urine Clarity Sl. Cloudy Urine pH 6.0 Ur Specific Morven 1.015 Urine Protein 30 H Urine Glucose (UA) Normal Urine Ketones Negative Urine Occult Blood 250 H Urine Nitrite Positive H Urine Bilirubin Negative Urine Urobilinogen Normal Ur Leukocyte Esterase 25 H Urine RBC 10-25 SEEN Urine WBC 0-5 SEEN Ur Squamous Epith Cells 0-5 SEEN Urine Bacteria 2+ Urine Mucus 0 SEEN Blood Type A POSITIVE Radiography Diagnostic Testing: Clinical Impression(s) from Imaging Studies Obstetrics Ultrasound 08/14/24 14:11 IMPRESSION: 1. Normal pelvic ultrasound without intrauterine gestational sac or yolk sac to suggest viable . 2. Mildly heterogeneous endometrium, compatible with reported history of medicalabortion. Reading Location: [facility] Discharge Plan Triage Chief Complaint: Vag Bleeding ED Provider: Adalberto Limon Dx/Rx/DC Orders Clinical Impression: Complete Instructions: Understanding Miscarriage: Emotions, Understanding Miscarriage: Recovery, Miscarriage Dc Prescriptions: New cephalexin 500 mg capsule 500 mg PO BID 7 Days Qty: 14 0RF Other Ambulatory Orders: hCG Titer Quant., Serum (Routine) Timeframe: 3 Days Facility: [facility] - Location: Laboratory Ordered By: Dr. Adalberto Limon Primary Care Provider: Care Physician,No Primary Referrals: Sarmad Heredia MD [Med Staff - Active Staff] - As soon as possible Eren Granado MD [Med Staff - Active Staff] - 3-5 Days Activity Restrictions/Additional Instructions: Follow-up with [facility]. Call the number tomorrow to make an appointment to be seen. Follow-up with PCP provided above if you do not have a PCP. Return back to the ED if symptoms change or worsen. Take all of your antibiotics. You needto have your beta-hCG repeated in 3 days, prescription prescribed. Print Language: Greek Disposition Disposition: Home, Self Care What to do if you have Problems For any increased pain, shortness of breath, bleeding, nausea or vomiting, chestpain, or any unexpected problems, contact your Primary Care Provider. Call [email or web address] [facility] ([phone]) or report to the closest Emergency Room. Call 911 if necessary. 08/14/24 [id number] <Electronically signed by Adalberto Limon DO> Cosigner Signature (if applicable): CC: No Primary Care Physician ~ Signed [facility] Work Phone: Evaluation noteNo assessment information available [facility] Work Phone: Evaluation note* Diagnosis Encounter for gynecological examination (general) (routine) without abnormal findings- Primary Screening for cervical cancer Screening for malignant neoplasm of the cervix Encounter for screening for human papillomavirus (HPV) Special screening examination for human papillomavirus (HPV) Unintended weight gain Abnormal weight gain Abnormal uterine bleeding (AUB) documented in this encounter [facility] note* Diagnosis Encounter for weight management- Primary Abnormal weight gain Class 3 severe obesity with body mass index (BMI) of 40.0 to 44.9 in adult, unspecified obesity type, unspecified whether serious comorbidity present (HCC) Suspected sleep apnea Snoring Other dyspnea and respiratory abnormality Binge eating Polyphagia documented in this encounter [facility] Discharge instructions Additional Instructions Follow-up with [facility]. Call the number tomorrow to make an appointment to be seen. Follow-up with PCP provided above if you do not have a PCP. Return back to the ED if symptoms change or worsen. Take all of your antibiotics. You need to have your beta-hCG repeated in 3 days, prescription prescribed.[facility] Work Phone: Hospital Discharge instructionsAdditional Instructions Please apply ice pack to your head and take motrin to help with the pain. Please follow-up with your primary care doctor if you not have 1 you can follow-up with one below as soon as possible. If you develop any redness, warmth or drainage from the area you need to return to the emergency department or see your primary care doctor for evaluation.[facility] Work Phone: Hospital Discharge instructionsAdditional Instructions When you take a hot shower you compress on the area to continue having it drain. Follow-up with the primary care doctor below and return to the ED with any new or worsening symptoms including worsening pain to the area, redness, warmth, fevers or chills.[facility] Work Phone: Reason for referral (narrative)No reason for referral information availableWMiami Valley [facility] Work Phone: Chief Complaint and Reason for Visit Chief Complaint Admit Date VAG BLEED August 14, 2024 1:50p m Chief Complaint Admit Date VAG BLEED August 14, 2024 1:50p m wound check December 04, 2024 3:19pm Chief Complaint Admit Date VAG BLEED August 14, 2024 1:50p m wound check December 04, 2024 3:19pm ABSECESS December 05, 2024 9:41pm Advance Directives No Advanced Directives Records Found Advance Directive Response Recorded Date/ Time Do you have a Healthcare Power of Top Carrier? No August 14, 2024 2:51pm Advance Directive Response Recorded Date/ Time Do you have a Healthcare Power of Top Carrier? No December 04, 2024 3:56pm Do you have a Healthcare Power of Top Carrier? No August 14, 2024 2:51pm Advance Directive Response Recorded Date/ Time Do you have a Healthcare Power of Top Carrier? No December 04, 2024 3:56pm Do you have a Healthcare Power of Top Carrier? No December 05, 2024 9:47pm Do you have a Healthcare Power of Top Carrier? No August 14, 2024 2:51pm Summary Purpose Family History No Family History Records FoundNo Family History Records Found Additional Source Comments Care Teams (unrecognized sec tion and content) Team Status: Active Member Role Status Dates No Primary Care Physician Primary Care Provider Active Team Status: Inactive Member Role Status Dates No Primary Care Physician Primary Care Provider Active Start: August 14, 2024 End: August 14, 2024 Dr. Adalberto Limon , DO Emergency Provider Activ e Start: August 14, 2024 End: August 14, 2024 Team Status: Active Member Role/Relationship Status Dates No Primary Care Physician Primary Care Provider Active Team Status: Inactive Member Role/Relationship Status Dates No Primary Care Physician Primary Care Provider Active Start: August 14, 2024 End: August 14, 2024 Dr. Adalberto Limon , DO Attending Provider Activ e Start: August 14, 2024 End: August 14, 2024 Dr. Adalberto Limon , DO Emergency Provider Activ e Start: August 14, 2024 End: August 14, 2024 Team Status: Inactive Member Role/Relationship Status Dates No Primary Care Physician Primary Care Provider Active Start: December 04, 2024 End: December 04, 2024 Dr. Mary Lou Aldridge MD Emergency Provider Active S tart: December 04, 2024 End: December 04, 2024 Team Status: Inactive Member Role/Relationship Status Dates No Primary Care Physician Primary Care Provider Active Start: December 05, 2024 End: December 05, 2024 Dr. Mary Lou Aldridge MD Emergency Provider Active S tart: December 05, 2024 End: December 05, 2024 Goals (unrecognized section and content) Goals may be documented in a n alternate sectionGoals may be documented in an alternate sectionGoals may be documented in an alternate section Source Comments (unrecognize d section and content) In the event this informatio n is protected by the Federal Confidentiality of Alcohol and Drug Abuse Patient Records regulations: The Federal rules restrict any use of the information to criminally investigate or prosecute any alcohol or drug abuse patient.[facility] the event this information is protected by the Federal Confidentiality of Alcohol and Drug Abuse Patient Records regulations: The Federal rules restrict any use of the information to criminally investigate or prosecute any alcohol or drug abuse patient.[facility] Reason for Visit (unrecogniz ed section and content) Reason Comments Well Woman Reason Comments Obesity New Patient INFORMATION SOURCE (unrecogn ized section and content) DATE CREATED AUTHOR 11/26/2024 [facility] DATE CREATED AUTHOR 'S DB MONTEJO 12/11/2024 [facility] FOR RECORDS PERTAINING TO PATIENTS WHO ARE OR HAVE BEEN ENROLLED IN A CHEMICAL DEPENDENCY/SUBSTANCEABUSE PROGRAM, SOME INFORMATION MAY BE OMITTED. This clinical summary was aggregated from multiple sources. Caution should be exercised in using it in the provision of clinical care. This summary normalizes information from multiple sources, and as a consequence, information in this document may materially change the coding, format and clinical context of patient data. In addition, data may be omitted in some cases. CLINICAL DECISIONS SHOULD BE BASED ON THE PRIMARY CLINICAL RECORDS. [facility] [employer] [facility] provides no warranty or guarantee of the accuracy or completeness of information in this document.
[2025-02-26 23:16] VITALS: BP 117/81; PULSE 98; RESP 16; O2SAT 100
[2025-02-26 23:18] VITALS: BP 117/81; PULSE 98; RESP 16; TEMP 36.7; O2SAT 100
== END 2025-02-26 23:20 | disposition home or self-care (01) ==
LOC: ED 23:10
PROVIDERS: Emergency Provider Emergency Medicine; Visit Provider Emergency Medicine
DX: J06.9 Acute upper respiratory infection, unspecified (principal); Z87.891 Personal history of nicotine dependence
CPT/HCPCS: 99282